=== PATIENT | male | born 1965 | race African-American/Black ===

== ENCOUNTER 2017-06-07 09:04 | Inpatient (IN) ==
[2017-06-07] MEDS ORDERED: CATAPRES ONE (09:27)
[2017-06-07] MEDS ORDERED: CATAPRES PO ONE (09:36)
[2017-06-07 09:48] LABS: UR AMPHETAMINES QUAL NONE DETECTED (NONE DETECT); UR BARBITUATES QUAL NONE DETECTED (NONE DETECT); UR BENZODIAZEPIN QUAL NONE DETECTED (NONE DETECT); UR CANNABINOIDS QUAL NONE DETECTED (NONE DETECT); UR COCAINE QUAL PRESUMPTIVE POSITIVE (NONE DETECT); UR MDMA QUAL NONE DETECTED (NONE DETECT); UR METHADONE QUAL NONE DETECTED (NONE DETECT); UR METHAMPHETAMINE QUAL NONE DETECTED (NONE DETECT); UR OPIATES QUAL NONE DETECTED (NONE DETECT); UR OXYCODONE QUAL NONE DETECTED (NONE DETECT); UR PCP QUAL NONE DETECTED (NONE DETECT); UR TCA QUAL NONE DETECTED (NONE DETECT)
[2017-06-07 09:56] LABS: BILIRUBIN URINE NEGATIVE (NEGATIVE); BLOOD URINE NEGATIVE (NEGATIVE); CLARITY SL. CLOUDY (CLEAR); COLOR YELLOW; GLUCOSE URINE NEGATIVE (NEGATIVE); LEUKOCYTES URINE 2+ (NEGATIVE); NITRITE URINE NEGATIVE (NEGATIVE); PROTEIN URINE 2+(100 mg/dL) mg/dL (NEGATIVE); UROBILINOGEN URINE NORMAL
[2017-06-07 10:02] LABS: BASO% 0.9 % (0.0-0.8); EOS% 1.9 % (0.0-10.0); HEMATOCRIT 30.7 % (42.0-52.0); HEMOGLOBIN 8.8 g/dL (14.0-18.0); IMM GRAN# 0.01 X1000 (0.0-0.04); IMM GRAN% 0.2 % (0.0-0.5); LYMPH# 1.33 X1000 (1.2-3.4); LYMPH% 24.9 % (20.5-51.1); MANUAL DIFF NEEDED? NO; MCH 19.6 PG (27-31); MCHC 28.7 g/dL (33-37); MCV 68.4 FL (81-99); MONO# 0.73 X1000 (0.11-0.59); MONO% 13.6 % (1.7-9.3); NEUT% 58.5 % (42.2-75.2); PLT 374 X1000 (130-400); RBC 4.49 XMIL (4.7-6.1)
[2017-06-07 10:05] LABS: URINE SOURCE CLEAN CATCH; URINE WBC 20-40 /HPF (<10)
[2017-06-07 10:06] LABS: URINE CULTURE PL NEEDED? YES; URINE EPITHELIAL CELLS <10 /HPF (<10)
[2017-06-07 10:23] LABS: AMYLASE 92 U/L (20-200); LIPASE 82 U/L (13-60)
[2017-06-07 10:24] LABS: ALBUMIN 3.9 g/dL (3.5-5.0); CALCIUM 8.7 mg/dL (8.8-10.2); MAGNESIUM 2.4 mg/dL (1.5-2.7); POTASSIUM 3.4 mmol/L (3.5-5.1); TOTAL BILIRUBIN 0.4 mg/dL (0.20-1.00); TOTAL PROTEIN 7.3 g/dL (6.3-8.3)
[2017-06-07] MEDS ORDERED: LASIX IV ONE (10:51)
[2017-06-07] MEDS ORDERED: NS 1,000 ML IV ONE (10:52)
[2017-06-07] MEDS ORDERED: SALINE LOCK IV FLUID XX ONE (12:09)
[2017-06-07] MEDS ORDERED: APRESOLINE IV PRN (12:09)
[2017-06-07] MEDS: PRINIVIL PO SCH (13:39)
[2017-06-07] MEDS: MIRALAX PO SCH (13:40)
[2017-06-08] MEDS: NORCO-7.5 PO PRN ×2 (00:58→07:19)
[2017-06-08 06:35] LABS: BASO% 0.3 % (0.0-0.8); EOS# 0.04 X1000 (0.0-0.7); EOS% 0.6 % (0.0-10.0); HEMATOCRIT 30.6 % (42.0-52.0); IMM GRAN# 0.02 X1000 (0.0-0.04); IMM GRAN% 0.3 % (0.0-0.5); LYMPH# 0.86 X1000 (1.2-3.4); LYMPH% 13.9 % (20.5-51.1); MANUAL DIFF NEEDED? YES; MCH 19.7 PG (27-31); MCHC 29.4 g/dL (33-37); MONO% 16.2 % (1.7-9.3); MPV 10.7 FL (7.4-10.4); NEUT% 68.7 % (42.2-75.2); PLT 386 X1000 (130-400); RBC 4.57 XMIL (4.7-6.1)
[2017-06-08 07:14] LABS: CALCIUM 8.8 mg/dL (8.8-10.2); POTASSIUM 3.4 mmol/L (3.5-5.1)
[2017-06-08 07:31] LABS: IRON SATURATION 4 %; TIBC 426 ug/dL; TOTAL IRON 19 ug/dL (53-167); UNBOUND IRON 407 ug/dL (112-346)
[2017-06-08 07:32] LABS: LYMPHS 16 % (21-51); MONO 12 % (1-9)
[2017-06-08 07:33] LABS: HYPOCHROM 2+
[2017-06-08 07:35] LABS: TARGET CELLS OCCASIONAL
[2017-06-08] MEDS ORDERED: BENTYL PO PRN (07:49)
[2017-06-08] MEDS ORDERED: LASIX IV SCH (09:00)
[2017-06-08] MEDS ORDERED: KLOR-CON PO SCH (09:00)
[2017-06-08] MEDS: PRINIVIL PO SCH (12:00)
[2017-06-08] MEDS: MIRALAX PO SCH (12:00)
[2017-06-08] MEDS ORDERED: APRESOLINE PO SCH (16:00)
[2017-06-08 16:12] VITALS: BP 185/95
[2017-06-08] MEDS ORDERED: FERROUS SULFATE PO SCH (21:00)
[2017-06-08] MEDS ORDERED: COLACE PO SCH (21:00)
[2017-06-08] MEDS ORDERED: COREG PO SCH (21:00)
[2017-06-09] MEDS ORDERED: NORVASC PO SCH (09:00)
[2017-06-09] MEDS ORDERED: HYGROTON PO SCH (09:00)
== END 2017-06-08 18:26 | disposition home or self-care (01) ==
LOC: P.ED 09:04 → P.MEDSURG 11:45
PROVIDERS: ATTEND Internal Medicine

== ENCOUNTER 2019-03-16 10:12 | Inpatient (IN) ==
[2019-03-16] MEDS: APRESOLINE IV ONE (10:55)
[2019-03-16] MEDS ORDERED: ASPIRIN PO ONE (11:02)
[2019-03-16 11:27] LABS: BASO# 0.02 X1000 (0.0-0.2); BASO% 0.5 % (0.0-0.8); EOS# 0.17 X1000 (0.0-0.7); EOS% 4.4 % (0.0-10.0); HEMATOCRIT 39.1 % (42.0-52.0); HEMOGLOBIN 13.1 g/dL (14.0-18.0); LYMPH# 0.74 X1000 (1.2-3.4); LYMPH% 19.3 % (20.5-51.1); MCH 28.1 PG (27-31); MCHC 33.5 g/dL (33-37); MCV 83.9 FL (81-99); MONO# 0.69 X1000 (0.11-0.59); MPV 11.9 FL (7.4-10.4); NEUT# 2.21 X1000 (1.4-6.5); NEUT% 57.8 % (42.2-75.2); PLT 164 X1000 (130-400); RBC 4.66 XMIL (4.7-6.1); RDW 16.1 % (11.5-14.5); WBC 3.83 X1000 (4.8-10.8)
[2019-03-16 11:38] LABS: INR 0.86; PROTIME 12.4 Seconds (11.0-16.0)
[2019-03-16 11:44] LABS: PTT HEPARIN PROTOCOL 27.9 Seconds
--- NOTE | 2019-03-16 11:46 | EKG Report ---
Test Performed on : 03/16/2019 10:20:21 AM Test Reason : htn Blood Pressure : / mmHG Vent. Rate : 071 BPM Atrial Rate : 071 BPM P-R Int : 128 ms QRS Dur : 108 ms QT Int : 446 ms P-R-T Axes : 049 -42 154 degrees QTc Int : 484 ms Normal sinus rhythm. Possible Left atrial enlargement Left axis deviation Left ventricular hypertrophy with repolarization abnormality Prolonged QT Abnormal ECG When compared with ECG of 06-JAN-2019 08:13, aberrant conduction. is no longer present Unconfirmed Result
[2019-03-16 11:51] LABS: ALB/GLOB RATIO 1.4; ALBUMIN 4.1 g/dL (3.5-5.0); CALCIUM 8.8 mg/dL (8.8-10.2); CREATININE 5.4 mg/dL (0.7-1.2); POTASSIUM 3.9 mmol/L (3.5-5.1); TOTAL BILIRUBIN 0.47 mg/dL (0.20-1.00)
[2019-03-16] MEDS ORDERED: LASIX IV ONE (12:14)
--- NOTE | 2019-03-16 12:40 | PROVIDER DOCUMENTATION ---
This chart was entered by Ani Bloom Scribe, acting as scribe for Alcon Marrero MD. HPI-Chest Pain - General Chief Complaint: B/P Problems Stated Complaint: BP HIGH Time Seen by Provider: 03/16/19 10:53 Source: patient Allergies/Adverse Reactions: Patient Allergies Allergy/AdvReac Type Severity Reaction Status Date / Time No Known Allergies Allergy Verified 03/16/19 11:58 Home Medications: Home Medication List Medication Instructions Recorded Confirmed Last Taken Type Docusate Sodium [Colace] 100 mg PO BID #60 capsule 06/08/17 03/16/19 03/22/18 08:00 Rx Ferrous Sulfate 325 mg PO BID #120 tablet 06/08/17 03/16/19 03/22/18 08:00 Rx Hydralazine [Apresoline] 50 mg PO Q8HR #120 tablet 06/08/17 03/16/19 03/22/18 08:00 Rx Amlodipine [Norvasc] 10 mg PO QAM 03/22/18 03/16/19 03/22/18 08:00 History Aspirin 81 mg PO QAM 03/22/18 03/16/19 03/22/18 08:00 History Chlorthalidone [Hygroton] 12.5 mg PO QAM 03/22/18 03/16/19 03/22/18 08:00 History Clindamycin [Cleocin] 300 mg PO Q6HR #40 capsule 03/22/18 03/16/19 Unknown Rx Tramadol HCl [Ultram] 50 mg PO Q6-8H PRN PRN #15 tablet 03/22/18 03/16/19 Unknown Rx Acetaminophen [Tylenol] 650 mg PO Q6H PRN 03/16/19 03/16/19 Unknown History - History of Present Illness-CP Nature of Presenting Problem: Patient is a 53 year old male who presents with chest pain, shortness of breath, headache and weakness that has been present intermittently for 3 days. Reports having elevated blood pressure this morning of 217/138. States taking all his HTN medication this morning. Location: reports: central Chest Pain Radiation: reports: no radiation Quality of Pain: reports: aching Severity in ED: mild Onset/Duration: 3 days ago Timing: still present, intermittent Context/Activities at Onset: reports: light activity Associated Symptoms: reports: headache, shortness of breath, weakness Similar Symptoms Previously?: Yes Recently Seen Here or By Another Healthcare Provider: No Review of Systems - Adult - REVIEW OF SYSTEMS - ADULT Constitutional: reports: no symptoms reported. denies: chills, fever, fatique Eyes: reports: no symptoms reported Ears, Nose, Mouth & Throat: reports: no symptoms reported Cardiovascular: reports: see HPI, chest pain. denies: heart murmur, orthopnea Respiratory: reports: see HPI, shortness of breath. denies: cough, wheezing Gastrointestinal: reports: no symptoms reported Genitourinary: reports: no symptoms reported Musculoskeletal: reports: see HPI, muscle weakness. denies: back pain, neck pain Integumentary: reports: no symptoms reported Neurological: reports: see HPI, headache/migraines (KAUR). denies: dizziness/vertigo, numbness, seizure, syncope Psychiatric: reports: no symptoms reported Endocrine: reports: no symptoms reported Hematologic/Lymphatic: reports: no symptoms reported Allergic/Immunologic: reports: no symptoms reported All Other Systems: Reviewed and Negative Past History - Adult - PAST MEDICAL HISTORY-ADULT Review of Records: reports: Old Records Reviewed, Nursing Assessment Review, Medications Reviewed, Social history reviewed & non-contributory. Major Childhood Illnesses: reports: denies history Cardiovascular: reports: HTN, [place] Respiratory: reports: denies history Gastrointestinal: reports: other (ETOH occ) Obstetrical/Gynecological: reports: denies history Genitourinary: reports: kidney disease Musculoskeletal: reports: denies history Neurological: reports: denies history Endocrine/Immune: reports: denies history Other Conditions: reports: denies history - PRIOR SURGERIES/PROCEDURES Surgical/Procedure History: reports: cardiac stent, other (eye) - IMMUNIZATION STATUS Childhood Immunizations: See Nurse Assessment Flu Vaccine: See Nurse Assessment - FAMILY HISTORY Family History: diabetes - SOCIAL HISTORY Smoking: cigarettes (former) Substance Use: denies Physical Exam-General - PHYSICAL EXAM-ADULT Initial Vital Signs Reviewed: Yes - CONSTITUTIONAL General Appearance: alert, no apparent distress. negative: lethargic, slow to respond - HEAD, EARS, NOSE, MOUTH & THROAT HENMT: normocephalic/atraumatic, moist mucous membranes. negative: angioedema, hearing deficit - RESPIRATORY Respiratory: chest non-tender, lungs clear, normal breath sounds. negative: crackles, stridor - CARDIOVASCULAR Cardiovascular: normal peripheral pulses, regular rate, rhythm. negative: tachycardia, systolic murmur - GASTROINTESTINAL (ABDOMEN) Abdominal Exam: normal bowel sounds, non tender, soft. negative: guarding, rebound - MUSCULOSKELETAL Extremity: non-tender, normal inspection. negative: deformity, erythema - SKIN Integumentary: normal color, normal turgor, warm/dry. negative: cyanosis, ecchymosis, erythema, rash - NEUROLOGIC Neurologic: grossly normal. negative: aphasia, facial droop - PSYCHIATRIC Psych/Mental Status: normal mood/affect, oriented x 3. negative: anxious Progress - PLAN OF CARE/RESULTS Progress/Plan/Lab Results: Vital Signs - 8 hr 03/16/19 10:17 03/16/19 10:40 03/16/19 10:50 Temperature 98.6 F Pulse Rate 78 Respiratory Rate 17 Blood Pressure 209/138 O2 Sat by Pulse Oximetry 98 97 98 03/16/19 11:00 03/16/19 11:10 03/16/19 11:20 Temperature Pulse Rate Respiratory Rate Blood Pressure O2 Sat by Pulse Oximetry 99 98 98 03/16/19 11:30 03/16/19 11:40 03/16/19 11:50 Temperature Pulse Rate Respiratory Rate Blood Pressure O2 Sat by Pulse Oximetry 99 99 99 03/16/19 12:00 03/16/19 12:10 03/16/19 12:17 Temperature Pulse Rate Respiratory Rate Blood Pressure 196/132 O2 Sat by Pulse Oximetry 99 98 100 03/16/19 12:20 03/16/19 12:30 03/16/19 12:32 Temperature Pulse Rate Respiratory Rate Blood Pressure 202/123 O2 Sat by Pulse Oximetry 99 99 100 03/16/19 12:38 Temperature Pulse Rate 76 Respiratory Rate 18 Blood Pressure O2 Sat by Pulse Oximetry Laboratory Results - last 24 hr 03/16/19 03/16/19 03/16/19 11:04 11:04 11:04 WBC 3.83 L RBC 4.66 L Hgb 13.1 L Hct 39.1 L MCV 83.9 MCH 28.1 MCHC 33.5 RDW Std Deviation 16.1 H Plt Count 164 MPV 11.9 H Immature Gran % (Auto) 0.0 Neut % (Auto) 57.8 Lymph % (Auto) 19.3 L Randolph % (Auto) 18.0 H Eos % (Auto) 4.4 Baso % (Auto) 0.5 Immature Gran # (Auto) 0.00 Neut # (Auto) 2.21 Lymph # (Auto) 0.74 L Randolph # (Auto) 0.69 H Eos # (Auto) 0.17 Baso # (Auto) 0.02 PT INR PTT (Heparin Protocol) Sodium 135 L Potassium 3.9 Chloride 99 Carbon Dioxide 20 L Anion Gap 16 BUN 63 H Creatinine 5.4 H Estimated GFR/1.73 m2 14 BUN/Creatinine Ratio 12 Glucose 90 Calculated Osmolality 288 Calcium 8.8 Total Bilirubin 0.47 AST 22 ALT 27 Alkaline Phosphatase 52 Troponin T Waz-C-Uxetuaquduh Pept > 97562 H Total Protein 7.0 Albumin 4.1 Globulin 2.9 Albumin/Globulin Ratio 1.4 03/16/19 03/16/19 11:04 11:04 WBC RBC Hgb Hct MCV MCH MCHC RDW Std Deviation Plt Count MPV Immature Gran % (Auto) Neut % (Auto) Lymph % (Auto) Randolph % (Auto) Eos % (Auto) Baso % (Auto) Immature Gran # (Auto) Neut # (Auto) Lymph # (Auto) Randolph # (Auto) Eos # (Auto) Baso # (Auto) PT 12.4 INR 0.86 PTT (Heparin Protocol) 27.9 Sodium Potassium Chloride Carbon Dioxide Anion Gap BUN Creatinine Estimated GFR/1.73 m2 BUN/Creatinine Ratio Glucose Calculated Osmolality Calcium Total Bilirubin AST ALT Alkaline Phosphatase Troponin T 0.046 Jwi-N-Nuqkwsqwbsx Pept Total Protein Albumin Globulin Albumin/Globulin Ratio Orders Category Date Time Status cxr [CHEST-1 VIEW] [RAD] Stat Exams 03/16/19 10:54 Completed CBC WITH ELECTRONIC DIFF [HEME] Stat Lab 03/16/19 11:04 Completed COMPREHENSIVE METABOLIC PANEL [CHEM] Stat Lab 03/16/19 11:04 Completed PRO B-NATRIURETIC PEPTIDE Stat Lab 03/16/19 11:04 Completed PROTIME WITH INR [COAG] Stat Lab 03/16/19 11:04 Completed PTT HEPARIN PROTOCOL [COAG] Stat Lab 03/16/19 11:04 Completed TROPONIN T Stat Lab 03/16/19 11:04 Completed URINE DRUG SCREEN Stat Lab 03/16/19 12:34 Uncollected Aspirin Med 03/16/19 11:02 Discontinued 325 mg PO NOW ONE Furosemide [Lasix] Med 03/16/19 12:14 Discontinued 40 mg IV NOW ONE Hydralazine [Apresoline] Med 03/16/19 10:55 Discontinued 20 mg IV NOW ONE Nitroglycerin Sl [Nitroglycerin] Med 03/16/19 11:02 Active 0.4 mg SL Q5M PRN PRN EKG [EKG] Stat Ther 03/16/19 10:54 Draft Result Diagrams: 03/16/19 11:04 03/16/19 11:04 - EKG 1 Time of EKG reading by physician:: 10:20 EKG Read and Signed by:: Alcon Marrero EKG Interpretation (*Must complete 3 of following elements*): Abnormal Rate: 71 Rhythm: normal sinus rhythm Laura: left QRS: LVH (with repolarization abnormality.) RI Interval: normal Comments: prolonged QT; possible left atrial enlargement - XRAY 1 XRAY Study: Chest Impression: See EMR Report (EXAM: CHEST-1 VIEW 03/16/2019 HISTORY: htn TECHNIQUE: AP portable at 1110 COMMENT: There is cardiomegaly and increased pulmonary vascularity. This has not changed appreciably since 06/07/2017. There are old rib fractures on the right. IMPRESSION: Cardiomegaly. Electronically signed by Dharmesh Gallardo 03/16/2019 12:57 PM 03/16/19 1257 Interpreting P hysician: Dharmesh Gallardo MD Dictated Date/Time: 03/16/19 1257 cc: Alcon Marrero MD; None,PCP) - CONSULTS/PCP/HOSPITALIST Notification #1 *Consult/PCP/Hospitalist*: Cat for Hospitalist Time Discussed: 12:39 Consult Disposition: Will see in ED, Admit Departure - Departure Date of Disposition Decision: 03/16/19 Time of Disposition Decision: 12:39 DIAGNOSIS: CHF exacerbation, Uncontrolled hypertension, Chest pain Disposition: ADMITTED INPATIENT 09 Certified Medical Emergency: Emergent Condition: Fair Referrals and Follow-Ups: None,PCP [Primary Care Provider] - - Critical Care Note This patient required my direct & personal management of CC.: No Attestation - Physician/ JAMES Attestation Patient care was provided by Advanced Practice Provider:: No The physician spent face to face time with patient:: Yes Advanced Practice Provider documentation review:: Supervising physician onsite and consulted in the evaluation and care of this patient. The physician did have a face to face encounter with the patient. This chart was documented by the indicated scribe, (Ani Bloom, Amanda) and accurately reflects the services I performed and decisions made by eRy schultz Donald C., MD, as attested by the provider's signature.
--- NOTE | 2019-03-16 13:00 | Diag Imaging Result Doc PS360 ---
EXAM: CHEST-1 VIEW 03/16/2019 HISTORY: htn TECHNIQUE: AP portable at 1110 COMMENT: There is cardiomegaly and increased pulmonary vascularity. This has not changed appreciably since 06/07/2017. There are old rib fractures on the right. IMPRESSION: Cardiomegaly. Electronically signed by Dharmesh Gallardo 03/16/2019 12:57 PM
[2019-03-16] MEDS ORDERED: APRESOLINE IV ONE (13:14)
[2019-03-16 14:20] LABS: UR AMPHETAMINES QUAL NONE DETECTED (NONE DETECT); UR BARBITUATES QUAL NONE DETECTED (NONE DETECT); UR BENZODIAZEPIN QUAL NONE DETECTED (NONE DETECT); UR CANNABINOIDS QUAL NONE DETECTED (NONE DETECT); UR COCAINE QUAL NONE DETECTED (NONE DETECT); UR METHADONE QUAL NONE DETECTED (NONE DETECT); UR OPIATES QUAL NONE DETECTED (NONE DETECT); UR OXYCODONE QUAL NONE DETECTED (NONE DETECT); UR PCP QUAL NONE DETECTED (NONE DETECT)
[2019-03-16] MEDS ORDERED: TYLENOL PO PRN (16:22)
[2019-03-16] MEDS ORDERED: APRESOLINE IV PRN (16:22)
--- NOTE | 2019-03-16 16:22 | HISTORY AND PHYSICAL ---
PRIMARY CARE PROVIDER: None. BAKE ROOM WORKER: Dr. Duckworth in [place]. CHIEF COMPLAINT: Chest pain, high blood pressure. HPI: Mr. Cruz is a 53-year-old male who carries a past medical history of CT 1 year ago status post stents, hypertension, questionable congestive heart failure, prior cocaine abuse presented to the ED with complaints of high blood pressure since Saturday and chest pain that started this a.m. that has now subsided. It was left-sided nonradiating. He was nauseated, dizziness and diaphoretic. No vomiting. No palpitations. Workup in the ED revealed a proBNP greater than 35,000, acute kidney injury on chronic kidney disease and a troponin of 0.046. His toxicology screen was negative. He is being admitted for chest pain rule out CHF exacerbation and acute kidney injury with a consult for Cardiology. REVIEW OF SYSTEMS: Twelve-point review of systems completely negative except for those mentioned in HPI. PAST MEDICAL HISTORY: 1. Hypertension. 2. Coronary artery disease status post CT. 3. Past medical history stent 1 year ago. 4. Sebaceous cyst removed from left forehead. FAMILY HISTORY: Noncontributory. SOCIAL HISTORY: Currently lives with family. Continues to smoke cigarettes, beer on occasion. Denies any illicit drug use. PHYSICAL EXAMINATION: VITAL SIGNS: Temperature is 98.6 degrees, heart rate 78, respiration 17, initial blood pressure was 209/138, repeat is 191/125, O2 is 99% on room air. GENERAL: Mr. Cruz is a pleasant 53-year-old -[place] male who is sitting up in the bed in no acute distress. HEENT: Atraumatic, normocephalic. PERRL. NECK: Supple. Trachea midline. CARDIOVASCULAR: S1, S2 appreciated. No murmurs, gallops, rubs noted. RESPIRATORY: Lung sounds bilateral crackles in the bases. No wheezes noted. GI: Soft, nontender, nondistended, positive bowel sounds 4 quads. EXTREMITIES: Lower extremity negative for edema. NEURO: No focal deficits noted. DIAGNOSTIC DATA: Chest x-ray cardiomegaly and increased pulmonary vasculature. EKG showed normal sinus rhythm, left axis deviation and LVH 71 beats per minute. LABORATORY DATA: White count 3, hemoglobin and hematocrit 13 and 39, platelet count 169,000. Sodium 135, potassium 3.9, BUN 63, creatinine 5.4, troponin 0.046, proBNP greater than 35,000. Tox screen was negative. ASSESSMENT AND PLAN: 1. Accelerated hypertension. Will continue with p.o. medications and IV p.r.n., patient could not recall medications he was on at home. He does not appear to be compliant. He states he has medications from Dr. Duckworth but he has not followed up with him. 2. Chest pain rule out. Will continue to trend his cardiac enzymes. He had a slightly mild elevation in his troponin however his chest pain has resolved since receiving medications in the emergency department. We will consult Cardiology, await further input. 3. Acute congestive heart failure exacerbation. Will continue with IV diuresis, check an echocardiogram, get Cardiology on board. His last echocardiogram was back in 2017 where he had left ventricular hypertrophy and ejection fraction of 55%. 4. SANDEE/CKD gently diuresis, check renal U/S and consult Gladish if kidney function worsens. 5. Coronary artery disease status post stenting. Patient states he only takes an aspirin when he has chest pain. 6. Hypertension aware see #1. 6. Probable medical noncompliance. Patient will need continued education. Contact social work job titles for medication assistance. 7. Further recommendation to follow physician evaluation, laboratory and diagnostic data. Dictated by CHARU Mills for Srikanth Shah MD Addendum: Patient seen and examined by myself. Agree with CHARU note. It reflects my assessment and plan. Patient is being admitted to hospital for chest pain most likely related to uncontrolled hypertension. Will trend cardiac enzymes, will optimize HTN control and consult Cardiology. Will monitor patient closely. cc: MD GOMEZ De La O
[2019-03-16] MEDS: APRESOLINE PO SCH (17:34)
[2019-03-16] MEDS: LASIX IV SCH (17:34)
[2019-03-16] MEDS: NORVASC PO SCH (17:34)
--- NOTE | 2019-03-16 17:51 | Diag Imaging Result Doc PS360 ---
EXAM: US RENAL 2 (RETROPER) COMPLETE 03/16/2019 HISTORY: SANDEE TECHNIQUE: Renal ultrasound COMMENT: The kidneys are hyperechoic. There is no evidence of hydronephrosis or mass. The urinary bladder is unremarkable. The prostate is not enlarged. The right kidney is 9.5 x 4.1 x 4.9 cm the left is 10.6 x 4.3 x 5.6 cm. IMPRESSION: Medical renal disease. Electronically signed by Dharmesh Gallardo 03/16/2019 5:49 PM
[2019-03-16] MEDS ORDERED: CATAPRES PO ONE (19:16)
[2019-03-16] MEDS: FERROUS SULFATE PO SCH (20:56)
[2019-03-16 21:02] LABS: T4 8.46 ug/dL (4.60-12.00)
[2019-03-17] MEDS: APRESOLINE PO SCH ×3 (01:09→21:12)
[2019-03-17 05:17] LABS: URINE SOURCE CLEAN CATCH
[2019-03-17 05:24] LABS: BILIRUBIN URINE NEGATIVE (NEGATIVE); BLOOD URINE NEGATIVE (NEGATIVE); COLOR STRAW; GLUCOSE URINE NEGATIVE (NEGATIVE); KETONE URINE NEGATIVE (NEGATIVE); LEUKOCYTES URINE NEGATIVE (NEGATIVE); NITRITE URINE NEGATIVE (NEGATIVE); PH URINE 6.5; PROTEIN URINE 200 mg/dL (NEGATIVE); SP GRAVITY URINE 1.009; TURBIDITY URINE CLEAR (CLEAR); UROBILINOGEN URINE NORMAL (NORMAL)
[2019-03-17 05:25] LABS: UR EPITHELIAL CELLS <10 /HPF (<10); URINE BACTERIA NEGATIVE /HPF; URINE RBC <10 /HPF (<10); URINE WBC <10 /HPF (<10)
[2019-03-17 05:39] LABS: UR CREAT RANDOM 63.2 mg/dL (14-26); UR PROT RANDOM 137.8 mg/dL
[2019-03-17] MEDS: LASIX IV SCH ×2 (05:52→17:19)
--- NOTE | 2019-03-17 07:35 | EKG Report ---
Test Performed on : 03/17/2019 07:05:48 AM Test Reason : Heart Failure Admission Blood Pressure : / mmHG Vent. Rate : 068 BPM Atrial Rate : 068 BPM P-R Int : 160 ms QRS Dur : 112 ms QT Int : 496 ms P-R-T Axes : 049 -35 160 degrees QTc Int : 527 ms Sinus rhythm. with premature atrial complexes. Possible Left atrial enlargement Left axis deviation Left ventricular hypertrophy with repolarization abnormality Cannot rule out Septal infarct , age undetermined Prolonged QT Abnormal ECG When compared with ECG of 16-MAR-2019 10:20, (Unconfirmed) premature atrial complexes. are now present Minimal criteria for Septal infarct are now present Confirmed by Jo-Ann JEWELL, Aubrey Mcclendon ([id number]) on 03/17/2019 5:31:06 PM
--- NOTE | 2019-03-17 08:04 | Diag Imaging Result Doc PS360 ---
CHEST-PORTABLE - 03/17/2019 INDICATION: CHF COMPARISON: 03/16/2019 FINDINGS: Stable mild cardiomegaly and pulmonary vascular congestion. No infiltrates or edema. No pneumothorax or pleural effusion. IMPRESSION: No change from prior. Electronically signed by Ivan Valdez 03/17/2019 8:01 AM
[2019-03-17] MEDS: NORVASC PO SCH (08:12)
[2019-03-17] MEDS: ASPIRIN PO SCH (08:12)
[2019-03-17] MEDS: FERROUS SULFATE PO SCH ×2 (08:13→21:11)
[2019-03-17] MEDS ORDERED: CATAPRES PO SCH (09:00)
[2019-03-17 11:23] LABS: HEMATOCRIT 40.3 % (42.0-52.0); HEMOGLOBIN 13.5 g/dL (14.0-18.0); MCH 28.5 PG (27-31); MCHC 33.5 g/dL (33-37); MCV 85.2 FL (81-99); MPV 11.1 FL (7.4-10.4); RBC 4.73 XMIL (4.7-6.1); WBC 2.72 X1000 (4.8-10.8)
[2019-03-17 11:57] LABS: CALCIUM 9.1 mg/dL (8.8-10.2); CREATININE 5.6 mg/dL (0.7-1.2); MAGNESIUM 2.4 mg/dL (1.5-2.7); PHOSPHORUS 6.1 mg/dL (2.7-4.5); POTASSIUM 3.7 mmol/L (3.5-5.1)
[2019-03-17 12:51] LABS: HEMOGLOBIN A1C 4.8 % (4.8-6.0)
[2019-03-17] MEDS: APRESOLINE IV ONE (13:15)
--- NOTE | 2019-03-17 14:13 | NEPHROLOGY CONSULTATION ---
DATE: 03/17/2019 REASON FOR ADMISSION: Chest pain with high blood pressure. REASON FOR CONSULTATION: Acute kidney injury on chronic kidney disease, stage unknown. CONSULTING PHYSICIAN: Dr. Salinas. HISTORY OF PRESENT ILLNESS: Mr. Cruz is a 53-year-old male, who has a past medical history of an [place] approximately 1 year ago, followed by Dr. Duckworth in [place]. The patient does have questionable history of congestive heart failure. He states that he had cocaine abuse in the past, presented yesterday evening with complaints of chest pain, left-sided, nonradiating pain, slight nausea, no emesis, no palpitations, no diaphoresis, no increased swelling or recent fall. He alsostates he's been told he had kidney disease. He is unaware of to what extent. In the emergency room, he had a proBNP greater than 35,000. His troponin was elevated at 0.46. He also had a BUN of 63 with a creatinine of 5.4. The patient subsequently was treated with medications. He has had cardiac enzymes drawn with slightly elevated troponin. Cardiology was consulted. He was given IV diuresis. Echocardiogram to be completed. Previous echocardiogram in 2017 showed an ejection fraction of 55% with a left ventricular hypertrophy. Blood pressure remains elevated. This continues to be monitored and medication prescribed per primary care. PAST MEDICAL HISTORY: Hypertension, coronary artery disease status post [place] in 2017. Past medical history of stent 1 year ago. Sebaceous cyst removed from left forehead. Chronic kidney disease. PREVIOUS SURGICAL HISTORY: Cardiac stent. SOCIAL HISTORY: He lives with his sister. He is currently from his for approximately 1 year. Continued to smoke cigarettes. Drinks beer, isolated every 2 to 3 days. Denies any illicit drug use. FAMILY HISTORY: Not contributory towards acute kidney injury or end-stage renal disease. ALLERGIES: Listed as no known drug allergies. HOME MEDICATIONS: Have been reviewed. These are listed as ferrous sulfate, Apresoline, aspirin, Ultram, Hygroton, Norvasc and Tylenol. REVIEW OF SYSTEMS: Times 10 with pertinent positives listed above in the HPI. PHYSICAL EXAMINATION: Vital Signs: The patient's most recent vital signs: Temperature 97.5 degrees, blood pressure 190/107 this a.m. currently down to 154/95 at the time of dictation. Heart rate of 75, respirations 14. He is on room air; last recorded saturation 100%. He has had 0 recorded in with 380 mL out. He has 200 mL sitting in his urinal. General: On physical examination, this is a 53-year-old male resting quietly in bed. He appears in no acute distress. Skin: Warm and dry. HEENT: Normocephalic, atraumatic. Conjunctiva is pale. He has EKTA. Mucous membranes are dry. Neck: Supple. Trachea midline. He has slight JVD in the upright position. Cardiovascular: He is regular rate and rhythm. No murmur or gallop appreciated. Lungs: Clear to auscultation anterior. Equal excursion on room air. Abdomen: Soft, nontender. Positive bowel sounds. Genitourinary: Not inspected. Patient is using urinal with adequate amount out, noted 200 mL in the urinal at the bedside. Extremities: Have no edema. No clubbing or cyanosis. Neurological: He is alert and oriented x3. Good historian. LABORATORY DATA: Sodium 131, potassium 3.7, chloride 93, CO2 22. BUN 67, creatinine 5.6, glucose 96. Anion gap is 16, calcium 9.1, phosphorus 6.1, albumin 4, with a magnesium of 2.4. White count 3.83, hemoglobin 13.5, hematocrit 40.3 with a platelet count of 182. The patient has a TSH of 2, T4 of 8.46. X-RAY DATA: Ultrasound of renal indicates right kidney measuring 9.5 with a left of 10.6. Chest x-ray shows stable chest with previous pulmonary vascular congestion noted. No infiltrates or edema. ASSESSMENT AND PLAN: 1. Acute kidney injury on questionable chronic kidney disease. The patient had a previous creatinine in 2017 of 2. This is questionable acute versus worsening of his chronic kidney disease. He does have a FENa score that has been completed indicated at 4.55%. Negative renal ultrasound. He is currently receiving Lasix 40 mg q. 12 hours. No intravenous fluids at this time. We will continue to monitor and follow. No indications for intervention at this time. 2. Electrolytes and acid-base balance. He has a low sodium of 131, potassium of 3.7, CO2 of 22, with a slight anion gap acidosis. We will continue to monitor. 3. Anemia. This is actually in target. 4. Hypertension. We have deferred to the primary care team. He has had carvedilol increased to 6.25 mg oral every 12 hours. He remains on Lasix 40 mg every 12 hours. Continues on amlodipine 10 mg, and has been started on hydralazine 50 mg oral every 8 this is followed by the primary care. We are awaiting Cardiology input. I would like to thank you for allowing us to follow with this patient. I expect that this is advanced stage IV CKD from hypertension. Given chronicity I do not think a biopsy would change his care. Complete initial data collection. We will follow him longitudinally. rg Dictated by CHARU Loya for Ryan Kauffman MD Face to face encounter, data reviewed, discussed with Mary Jimenez on 03/17/19. I agree with the above assessment and plan of care. rg cc: CHARU Loya MD [facility]
[2019-03-17] MEDS: APRESOLINE IV PRN ×2 (14:55→19:44)
--- NOTE | 2019-03-17 18:23 | PROGRESS NOTE ---
DATE: 03/17/2019 SUBJECTIVE: The patient is sitting up in bed eating lunch. He states that he is no longer having any chest pain. He also denies having any shortness of breath. His headache is better. OBJECTIVE: Vital Signs: Temperature 97.5 degrees, blood pressure 172/119, heart rate 73, respirations 20, O2 saturations 100% on room air. Intake 480, output 550. General: This is a chronically ill-appearing elderly male sitting up in bed in no acute distress. Heart: S1, S2, normal. Lungs: Equal air entry bilaterally. No wheezing. No rales. No rhonchi. Abdomen: Positive bowel sounds. Soft, nontender, nondistended. Extremities: No edema, no cyanosis. Neurologic: The patient is alert and oriented x4. LABORATORY DATA: White blood cell count 2.7, hemoglobin 13, hematocrit 40, platelets 182,000. Sodium 131, potassium 3.7, chloride 93, CO2 is 22, BUN 67, creatinine 5.6, glucose 96. CK 80. Albumin 4. ASSESSMENT AND PLAN: 1. Chest pain. The patient is scheduled to undergo a stress test. Further recommendations to follow from the traveler changer. 2. Malignant hypertension. The patient's blood pressure is poorly controlled at this time. We will await further adjustments from the traveler changer. 3. Acute kidney injury on chronic kidney disease. The patient's renal function has worsened significantly. We will await recommendations from the cardiac exercise physiologist. 4. Acute congestive heart failure exacerbation. The patient is currently on diuretic therapy. Further recommendations to follow from the traveler changer. 5. Tobacco dependence. The patient has been counseled about smoking cessation. 6. Deep vein thrombosis prophylaxis. We will start the patient on heparin. cc: MD GOMEZ Fried
--- NOTE | 2019-03-17 19:39 | CONSULTATION ---
DATE OF CONSULTATION: 03/17/2019 IMPRESSION: 1. Episodic chest discomfort with features predominantly atypical for myocardial ischemia. 2. Acute on chronic renal failure. 3. Severe hypertension, poorly controlled. 4. Atherosclerotic coronary disease, status post acute inferior myocardial infarction January 2018. Coronary angiography in [facility] demonstrated occluded mid right coronary artery and 70% to 75% obtuse marginal stenosis. The patient underwent angioplasty/stenting of the right coronary with a drug-eluting stent at that time. Left ventricular ejection fraction normal. 5. Chronic cigarette use. Patient previously quit smoking but has gone back to smoking a few cigarettes a day. RECOMMENDATIONS: 1. Echocardiography. 2. Arrange Lexiscan sestamibi study; however, given his acute on chronic renal failure, will gravitate toward medical management of the patient's coronary atherosclerosis at this time unless he has clear-cut unstable coronary symptoms. 3. Continue current antihypertensive regimen with carvedilol, hydralazine and amlodipine. Will increase dose of carvedilol and may consider switching to labetalol, depending on his response. HISTORY OF PRESENT ILLNESS: This is a 53-year-old male with a past history of severe hypertension and atherosclerotic coronary disease who was admitted to the emergency room with atypical chest pain and severe hypertension He suffered an acute inferior myocardial infarction in January 2018. He was transported emergently to [facility], where coronary angiography demonstrated an occluded right coronary and 70% to 75% obtuse marginal stenosis. He underwent emergent angioplasty/stenting of the right coronary artery with placement of drug- eluting stent. He has continued without chest discomfort like that since then. He has not had regular medical followup for financial reasons; however, he relates he has been taking his medicines with the exception of just a few days. He relates that about a week or so ago he started having problems with exertional shortness of breath. There was no orthopnea. Prior to admission he started having some left-sided sharp intermittent chest discomfort. The chest discomfort seemed to be somewhat pleuritic in nature. The chest discomfort is not like what he has experienced with his coronary disease last year. He was found to have severely elevated blood pressure as well as acute renal failure. PAST MEDICAL HISTORY: 1. Severe hypertension. 2. Atherosclerotic coronary disease as outlined above. PAST SURGICAL HISTORY: Limited and consists of removal of a cyst from his left forehead. ALLERGIES: He has no known drug allergies. MEDICATIONS PRIOR TO ADMISSION: As listed. SOCIAL HISTORY: He currently lives with family. He continues to smoke 4-5 cigarettes daily and previously smoked more in the past. Drinks an occasional beer. FAMILY HISTORY: Positive for coronary disease and hypertension. REVIEW OF SYSTEMS: Pulmonary: Noteworthy for exertional dyspnea. He has very little cough. Gastrointestinal: Negative. Constitutional: Negative/noncontributory. Remainder of review of systems negative/noncontributory with 14 total systems reviewed. PHYSICAL EXAMINATION: General: This is a pleasant adult -[place] male in no distress. Vital signs: Blood pressure 172/119. On most recent check just before that 152/103. Heart rate 73 and regular. Oxygen saturation 100% on room air. HEENT: Extraocular movements appear intact. Mucous membranes are moist. Neck: Supple without jugular venous distention. There are no carotid bruits. Chest: Clear to auscultation. Cardiac Exam: Reveals a regular rate and rhythm with normal 1st and 2nd heart sounds. An S4 gallop is present. No murmur could be appreciated. Abdomen: Soft, nontender. Bowel sounds are normal. Extremities: Without edema. Neurologic: Reveals him to be alert and fully oriented. Speech is fluent. Moves all 4 extremities equally well. Skin: Warm and dry. Psychiatric: Reveals mood to be appropriate. PERTINENT DATA: A 12-lead electrocardiogram demonstrates sinus rhythm with occasional premature atrial complex, left axis deviation, left atrial enlargement and left ventricular hypertrophy with repolarization abnormality. Q-T interval is prolonged. LABORATORY DATA: Includes a white blood cell count of 2.72, hematocrit 40.3, hemoglobin 13.5, platelet count 182. Sodium 131, potassium 3.7, chloride 93. Carbon dioxide 22, BUN 67, creatinine 5.6, glucose 96 magnesium 2.4. Initial troponin 0.048, followup troponin 0 0.042. Albumin 4.0. cc: Sandeep Marvin MD
[2019-03-17] MEDS ORDERED: COREG PO SCH (21:00)
[2019-03-17] MEDS: HEPARIN SUBQ SCH (21:11)
--- NOTE | 2019-03-17 23:48 | ECHO REPORT ---
ORDER DATE: 03/16/2019 MEASUREMENTS: Septal thickness 2.5, left ventricular internal diameter diastole 3.7, posterior wall thickness 2.5, left ventricular internal diameter in systole 2.6, aortic root 4.2, left atrium 4.0. SUMMARY: 1. Adequate quality study. 2. Aortic valve is trileaflet and opens normally on 2-dimensional images. Peak gradient across the aortic valve is 12 mmHg. There is mild aortic regurgitation. Mitral, tricuspid, and pulmonic valves are without evidence of structural abnormality with mild to moderate mitral regurgitation. Aortic root is mildly enlarged. 3. Normal left ventricular chamber size with severe concentric left ventricular hypertrophy demonstrated. Estimated left ejection fraction is approximately 55%. No regional wall motion abnormalities evident. Doppler suggests grade 1 left ventricular diastolic dysfunction. Left atrium is borderline enlarged. Right atrium and right ventricle are normal in size with normal right ventricular systolic function. 4. No pericardial effusion. 5. Appearance of inferior vena cava suggests normal central venous pressure. CONCLUSIONS: 1. Mild aortic regurgitation. 2. Mild aortic root enlargement. 3. Mild to moderate mitral regurgitation. 4. Severe concentric left hypertrophy with estimated left ejection fraction approximately 55%. 5. Grade 1 left ventricular diastolic dysfunction. 6. Borderline left atrial enlargement. cc: Sandeep Marvin MD
[2019-03-18] MEDS: APRESOLINE PO SCH ×3 (05:19→20:02)
[2019-03-18] MEDS: LASIX IV SCH (05:19)
--- NOTE | 2019-03-18 07:14 | EKG Report ---
Test Performed on : 03/18/2019 06:19:06 AM Test Reason : chest pain Blood Pressure : / mmHG Vent. Rate : 083 BPM Atrial Rate : 083 BPM P-R Int : 138 ms QRS Dur : 110 ms QT Int : 466 ms P-R-T Axes : 058 -22 138 degrees QTc Int : 547 ms Sinus rhythm. with premature atrial complexes. Possible Left atrial enlargement Left ventricular hypertrophy with repolarization abnormality Prolonged QT Abnormal ECG When compared with ECG of 17-MAR-2019 07:05, Nonspecific T wave abnormality no longer evident in Anterior leads Confirmed by Jo-Ann JEWELL, Aubrey Mcclendon ([id number]) on 03/18/2019 3:52:49 PM
[2019-03-18] MEDS ORDERED: LEXISCAN ONE (08:10)
[2019-03-18] MEDS: FERROUS SULFATE PO SCH ×2 (08:58→20:02)
[2019-03-18] MEDS: APRESOLINE IV PRN (08:59)
[2019-03-18] MEDS ORDERED: COREG PO SCH (09:00)
[2019-03-18] MEDS: ASPIRIN PO SCH (09:01)
[2019-03-18] MEDS: HEPARIN SUBQ SCH ×2 (09:01→20:01)
[2019-03-18] MEDS: NORVASC PO SCH (09:01)
[2019-03-18] MEDS: IMDUR PO SCH (09:01)
[2019-03-18] MEDS ORDERED: CARDENE 20 MG/NS 20 MG/200 ML PIGGYBACK IV SCH (10:00)
[2019-03-18 10:14] LABS: HEMATOCRIT 41.6 % (42.0-52.0); MCH 28.1 PG (27-31); MCHC 33.7 g/dL (33-37); MCV 83.4 FL (81-99); MPV 11.1 FL (7.4-10.4); RBC 4.99 XMIL (4.7-6.1); RDW 15.8 % (11.5-14.5); WBC 3.15 X1000 (4.8-10.8)
--- NOTE | 2019-03-18 10:16 | Diag Imaging Result Doc PS360 ---
CHEST-PORTABLE - 03/18/2019 INDICATION: dyspnea COMPARISON: 03/17/2019 FINDINGS: Heart size is borderline. No infiltrates or edema. No pneumothorax or pleural effusion. IMPRESSION: Borderline cardiomegaly but no acute disease. Electronically signed by Ivan Valdez 03/18/2019 10:13 AM
--- NOTE | 2019-03-18 10:20 | NEPHROLOGY PROGRESS NOTE ---
DATE: 03/18/2019 Date Seen: 03/18/2019 Time Seen: 0640. SUBJECTIVE: Mr. Cruz is resting quietly in bed. States that he is feeling well. Hopes to go home today. OBJECTIVE: Vital Signs: Temperature 98.2 degrees, blood pressure 155/100, heart rate 82, respirations 14. He is on room air. Last recorded saturation 100%. He has had 480 in, 750 out to void. LAB: These are currently pending this a.m. Previous potassium 3.7 with a BUN of 67 and creatinine of 5.6. Previous hemoglobin 13.5 on the . PHYSICAL EXAMINATION: This is a 53-year-old male. He is currently resting quietly in bed. He appears chronically ill though no acute distress.Skin: Warm and dry. HEENT: Normocephalic, atraumatic. Conjunctiva is pale pink. He has EKTA. Mucous membranes are dry. Neck: Supple. Trachea midline. He does have slight JVD in the upright position. Cardiovascular: He is regular rate and rhythm. No murmur or gallop appreciated. Lungs: Clear to auscultation bilaterally. Equal excursion on room air. Abdomen: Soft, round, nontender. Positive bowel sounds. Genitourinary: Not inspected. Patient has been voiding adequate amount that has been documented. Extremities: Have no edema, no clubbing or cyanosis. Neurological: He is alert and oriented x3. ASSESSMENT AND PLAN: 1. Presumed CKD with progression secondary to HTN. This is questionable chronic kidney disease stage 5 with worsening of his renal status. The patient had a negative ultrasound. He continued to receive Lasix 40 mg q.12 hours. He has no IV fluids in place with adequate urine out. We have spoken to the patient of possible progression of his renal disease and would need to be followed closely in our office upon discharge. The patient states understanding. 2. Electrolytes, acid-base balance and anemia. These have all been fairly stable with labs currently pending during his hospital stay. 3. Hypertension. The patient has had Coreg increased to 12.5 mg b.i.d. We will continue to monitor and follow. DISPOSITION: The patient states he has no health insurance, is concerned about discharge. We will ask social media job titles to assist the patient in any way that they can, also in regards with possible lab draws through the hospital system on an outpatient basis. I would like to thank you for allowing us to follow with this patient. Dictated by CHARU Loya for Ryan Kauffman MD Face to face encounter, data reviewed, discussed with Mary Jimenez on 03/18/19. I agree with the above assessment and plan of care. cc: CHARU Loya MD [facility]
[2019-03-18 10:46] LABS: ALBUMIN 4.3 g/dL (3.5-5.0); CALCIUM 9.2 mg/dL (8.8-10.2); CREATININE 5.9 mg/dL (0.7-1.2); PHOSPHORUS 5.2 mg/dL (2.7-4.5); POTASSIUM 3.7 mmol/L (3.5-5.1)
[2019-03-18] MEDS ORDERED: LABETALOL IV ONE (15:49)
[2019-03-18] MEDS ORDERED: ADALAT CC PO ONE (16:12)
[2019-03-18] MEDS ORDERED: LABETALOL IV PRN (16:16)
--- NOTE | 2019-03-18 17:15 | CARDIOLOGY PROGRESS NOTE ---
DATE: 03/18/2019 SUBJECTIVE: Patient's blood pressure became significantly elevated while in Nuclear Medicine and the 2nd half of Lexiscan sestamibi study was postponed. Patient was taken back to the floor and was given his morning antihypertensive medications as well as some additional intravenous hydralazine. Blood pressure remained elevated, and he was brought to the intensive care unit and started on intravenous Cardene drip. He has had some chest tightness this morning, which has now resolved. OBJECTIVE: Blood pressure 144/97 and after intravenous Cardene drip interrupted blood pressure significantly elevated, heart rate 87, oxygen saturation 99% on room air. There is no significant jugular venous distention. Chest is clear to auscultation. Cardiac exam reveals a regular rate and rhythm with normal 1st and 2nd heart sounds. S4 gallop present. There is no evidence of peripheral edema. DIAGNOSTIC STUDIES: Laboratory data includes a white blood cell count of 3.15, hematocrit 41.6, hemoglobin 14.0, platelet count 225,000. Sodium 134, potassium 3.7, chloride 93, carbon dioxide 22, BUN 69, creatinine 5.9, glucose 104. Troponin T less than 0.04. Albumin 4.3. Echocardiography demonstrates mild aortic regurgitation, aortic root enlargement to a mild degree, mild to moderate mitral regurgitation, and severe concentric left hypertrophy with estimated left ventricular ejection fraction approximately 55%. IMPRESSION: 1. Episodic chest discomfort with mixed features. No objective evidence of myocardial ischemia. 2. Renal failure. 3. Hypertensive cardiovascular disease with severe hypertension and severe concentric left ventricular hypertrophy. 4. Atherosclerotic coronary disease with previous inferior myocardial infarction, January 2018. Patient is status post angioplasty and stenting of occluded right coronary artery with drug- eluting stent at that time. 5. Chronic cigarette use. Patient previously had quit smoking but has gone back to smoke a few cigarettes a day. RECOMMENDATIONS: 1. Increase carvedilol further. 2. Switch from amlodipine to Procardia XL 90 mg p.o. daily. 3. If blood pressure remains elevated despite the changes, consider switching carvedilol to labetalol and pushing the dose. 4. Ultimately, complete Lexiscan myocardial perfusion study once blood pressure is sufficiently controlled. cc: Sandeep Marvin MD
--- NOTE | 2019-03-18 18:17 | PROGRESS NOTE ---
DATE: 03/18/2019 SUBJECTIVE: This morning the patient was noted to be complaining of some chest tightness and his blood pressure was noted to be markedly elevated at 198/122. Also, he was complaining of a nosebleed and a mild headache. In light of these findings, the patient was transferred to the ICU and started on a Cardene drip. OBJECTIVE: Vital Signs: Temperature 98.6 degrees, blood pressure 164/118, heart rate 78, respirations 23, O2 saturation 99% on room air. Urine output 750. General: This is a chronically ill-appearing elderly male lying in bed in no acute distress head normocephalic, atraumatic. Heart: S1, S2 normal. Regular rate and rhythm. Lungs: Clear to auscultation bilaterally. No wheezing. No rales. No rhonchi. Abdomen: Positive bowel sounds. Soft, nontender, nondistended. Extremities: No edema. No cyanosis. Neurologic: The patient is alert and oriented x4. LABS: White blood cell count 3.1, hemoglobin 14, hematocrit 41, platelets 225,000. Sodium 134, potassium 3.7, chloride 93, CO2 of 22, BUN 69, creatinine 5.9, glucose 104, phosphorus 5.2, albumin 4.3. ASSESSMENT AND PLAN: 1. Hypertensive urgency. The patient's blood pressure remains markedly elevated. The patient is now on a Cardene drip and his antihypertensives have been adjusted again today. We will continue to monitor for improvement in an intensive care unit setting. 2. Acute kidney injury on chronic kidney disease. This appears to be worsening. Further recommendations as per the marketing communications coordinator. 3. Coronary artery disease with a history of myocardial infarction. Aware. Continue on the current cardiac medications. 4. Tobacco dependence. The patient has been counseled about smoking cessation. 5. Acute diastolic congestive heart failure exacerbation. The patient is currently on diuretic therapy. Continue to monitor closely for improvement. 6. Deep vein thrombosis prophylaxis. Continue on heparin. 7. Constipation. We will start the patient on MiraLAX. cc: Brunilda Salinas MD [facility]
[2019-03-18] MEDS: COREG PO SCH (20:02)
[2019-03-18] MEDS: MIRALAX PO SCH (20:02)
[2019-03-18] MEDS: CULTURELLE PO SCH (20:02)
[2019-03-18] MEDS ORDERED: TRANDATE PO SCH (21:00)
[2019-03-19] MEDS: APRESOLINE PO SCH ×3 (05:00→20:26)
[2019-03-19 05:52] LABS: HEMATOCRIT 37.5 % (42.0-52.0); HEMOGLOBIN 12.6 g/dL (14.0-18.0); MCH 28.3 PG (27-31); MCHC 33.6 g/dL (33-37); MCV 84.1 FL (81-99); MPV 11.1 FL (7.4-10.4); RBC 4.46 XMIL (4.7-6.1); RDW 15.2 % (11.5-14.5); WBC 3.08 X1000 (4.8-10.8)
[2019-03-19 06:16] LABS: ALBUMIN 3.5 g/dL (3.5-5.0); CALCIUM 8.4 mg/dL (8.8-10.2); CREATININE 6.1 mg/dL (0.7-1.2); PHOSPHORUS 5.7 mg/dL (2.7-4.5); POTASSIUM 3.7 mmol/L (3.5-5.1)
[2019-03-19] MEDS: CULTURELLE PO SCH ×2 (08:00→20:26)
[2019-03-19] MEDS: FERROUS SULFATE PO SCH ×2 (08:00→20:26)
[2019-03-19] MEDS: COREG PO SCH ×2 (08:00→20:26)
[2019-03-19] MEDS: ASPIRIN PO SCH (08:00)
[2019-03-19] MEDS: ADALAT CC PO SCH (08:00)
[2019-03-19] MEDS: IMDUR PO SCH (08:00)
[2019-03-19] MEDS: MIRALAX PO SCH ×2 (08:01→20:26)
[2019-03-19] MEDS: HEPARIN SUBQ SCH ×2 (08:01→20:27)
[2019-03-19] MEDS: LASIX IV SCH (08:01)
--- NOTE | 2019-03-19 08:37 | NEPHROLOGY PROGRESS NOTE ---
DATE: 03/19/2019 TIME SEEN: 06. SUBJECTIVE: Mr. Cruz is resting quietly in bed. He is now in ICU. He was transferred midday yesterday for elevated blood pressure and started on a Cardene drip. The patient states that he has an occasional headache. He has not really gotten short of breath but has in the past at home when his blood pressure rises. OBJECTIVE: Vital Signs: Temperature 98.4 degrees, blood pressure 171/105, heart rate 64, respirations 16. He is on room air. Last recorded saturation 100%. He has had 2020 and 1205 out to void. Labs: Sodium 132, potassium 3.7, chloride is 94, CO2 20, BUN 70, creatinine 6.1, glucose is 90, his anion gap is 18, calcium 8.4, albumin 3.5, phosphorus 5.7. White count 3.08, hemoglobin 12.6, hematocrit 37.5, with a platelet count of 206,000. Physical Examination: General: This is a 53-year-old, -Banglades[place] male. He is resting quietly in bed. He appears in no acute distress. His skin is warm and dry. HEENT: Normocephalic, atraumatic. Conjunctivae are pale. He has EKTA. Mucous membranes are dry. Neck: Supple. Trachea midline. He has no JVD in the upright position. Cardiovascular: Regular rate and rhythm. S4 is present. He is currently in the 60s on the monitor. Lungs: Clear to auscultation bilaterally. Equal excursion, on room air. Abdomen: Soft, nontender. Positive bowel sounds. Genitourinary: Not inspected. Patient is voiding adequate amounts. Extremities: Have no edema. No clubbing or cyanosis. Neurological: Alert and oriented x3. ASSESSMENT AND PLAN: 1. Presumed chronic kidney disease with progression secondary to hypertension. The patient has questionable chronic kidney disease stage 5 with worsening of his renal status. BUN and creatinine are elevated at 70 and 6.1 today. Blood pressure remains elevated in spite of having a Cardene drip on board. He had his Coreg increased to 25 mg twice a day. We will increase his hydralazine to 100mg TID. We have spoken to him in regards with possible starting on dialysis if his numbers continue to elevate. The patient states understanding. 2. Uncontrolled hypertension. Patient has a Cardene drip infusing to keep his blood pressure with a MAP of 65, to titrate for maximum dose of 15 mg an hour. He has also had his Coreg increased to 25 mg twice a day. We will increase his hydralazine to 100 mg three times a day. He has also been started on Lasix 80 mg intravenous daily. Continues on nifedipine 90 mg extended release and remains on isosorbide 30 mg. He also has labetalol ordered as needed, prn. We will check his urine today to look for hematuria. He is positive for proteinuria at this time. 3. Electrolytes and acid-base balance. These are acceptable. 4. Anemia. This is in target. 5. Heart failure. This is currently being treated by cardiology. We would like to thank them for their assistance. Dictated by CHARU Loya for Ryan Kauffman MD Face to face encounter, data reviewed, discussed with Mary Jimenez on 03/19/19. I agree with the above assessment and plan of care. cc: CHARU Loya MD [facility]
--- NOTE | 2019-03-19 12:48 | PROGRESS NOTE ---
DATE: 03/19/2019 SUBJECTIVE: The patient is resting comfortably in bed. His Cardene drip is on standby. He states that he is no longer having chest pain and denies any shortness of breath. OBJECTIVE: Vital Signs: Temperature 98.6 degrees, blood pressure 157/106, heart rate 69, respirations 18, O2 saturation is 100% on room air. General: This is an elderly male lying in bed in no acute distress. Head: Normocephalic, atraumatic. Heart: S1, S2 normal. Regular rate and rhythm. Lungs: Clear to auscultation bilaterally. No wheezing. No rales. No rhonchi. Abdomen: Positive bowel sounds. Soft, nontender, nondistended. Extremities: No edema, no cyanosis, no calf tenderness. Neurologic: The patient is alert and oriented x4. LABS: White blood cell count 3, hemoglobin 12, hematocrit 37, platelets 206. Sodium 132, potassium 3.7, chloride 94, CO2 20. BUN 70, creatinine 6.1, glucose 90, phosphorus 5.7, albumin 3.5. ASSESSMENT AND PLAN: 1. Accelerated hypertension. The patient's systolic blood pressures are better; however, the diastolic blood pressure remains in the 100s. Continue with antihypertensive titration. 2. Acute kidney injury on chronic kidney disease. Unchanged. The patient may require dialysis. Further recommendations to follow from the jar capper. 3. Coronary artery disease with a history of myocardial infarction and percutaneous coronary intervention. Continue on the current cardiac medications. 4. Acute diastolic congestive heart failure exacerbation. The patient is currently on diuretic therapy. Management as per the oxyhydrogen welder. 5. Tobacco dependence. The patient has been counseled about smoking cessation. 6. Deep vein thrombosis prophylaxis. The patient is on heparin. cc: Brunilda Salinas MD [facility]
[2019-03-19] MEDS: NITROGLYCERIN SL PRN ×3 (15:14→15:49)
[2019-03-20 01:19] LABS: URINE SOURCE VOIDED
[2019-03-20 01:22] LABS: BILIRUBIN URINE NEGATIVE (NEGATIVE); BLOOD URINE NEGATIVE (NEGATIVE); COLOR YELLOW; GLUCOSE URINE NEGATIVE (NEGATIVE); KETONE URINE NEGATIVE (NEGATIVE); LEUKOCYTES URINE MODERATE (NEGATIVE); NITRITE URINE NEGATIVE (NEGATIVE); PROTEIN URINE 100 mg/dL (NEGATIVE); TURBIDITY URINE CLEAR (CLEAR); UROBILINOGEN URINE NORMAL (NORMAL)
[2019-03-20 01:23] LABS: UR EPITHELIAL CELLS <10 /HPF (<10); URINE BACTERIA NEGATIVE /HPF; URINE RBC <10 /HPF (<10)
[2019-03-20] MEDS: APRESOLINE PO SCH ×3 (03:59→22:03)
[2019-03-20 04:59] LABS: HEMATOCRIT 38.5 % (42.0-52.0); MCH 28.2 PG (27-31); MCHC 33.8 g/dL (33-37); MCV 83.5 FL (81-99); MPV 10.6 FL (7.4-10.4); RBC 4.61 XMIL (4.7-6.1); RDW 15.1 % (11.5-14.5); WBC 4.05 X1000 (4.8-10.8)
[2019-03-20 05:34] LABS: ALBUMIN 3.6 g/dL (3.5-5.0); CALCIUM 9.2 mg/dL (8.8-10.2); CREATININE 5.9 mg/dL (0.7-1.2); POTASSIUM 3.6 mmol/L (3.5-5.1)
[2019-03-20] MEDS: LASIX IV SCH (08:58)
[2019-03-20] MEDS: FERROUS SULFATE PO SCH ×2 (08:59→22:03)
[2019-03-20] MEDS: COREG PO SCH (08:59)
[2019-03-20] MEDS: CULTURELLE PO SCH ×2 (08:59→22:03)
[2019-03-20] MEDS: IMDUR PO SCH (08:59)
[2019-03-20] MEDS: PHOSLO PO SCH ×3 (08:59→17:30)
[2019-03-20] MEDS: ASPIRIN PO SCH (08:59)
[2019-03-20] MEDS: HEPARIN SUBQ SCH ×2 (08:59→22:03)
[2019-03-20] MEDS ORDERED: LEXISCAN ONE (10:09)
[2019-03-20] MEDS ORDERED: AMINOPHYLLINE ONE (10:41)
--- NOTE | 2019-03-20 13:26 | PROGRESS NOTE ---
DATE: 03/20/2019 SUBJECTIVE: The patient is resting comfortably in bed. He denies having any chest pain, shortness of breath, headache or dizziness. OBJECTIVE: Vital Signs: Temperature 98.5 degrees, blood pressure 140/85, heart rate 63, respirations 17, O2 saturations 100% on room air. Intake 1.8 L, output 2.2 L. General: This is a chronically ill-appearing elderly male lying in bed in no acute distress. Heart: S1, S2 normal. Regular rate and rhythm. Lungs: Clear to auscultation bilaterally. Abdomen: Positive bowel sounds. Soft, nontender, nondistended. Extremities: No edema. No cyanosis. Neuro: The patient is alert oriented x4. LABORATORY DATA: White blood cell count 4, hemoglobin 13, hematocrit 38, platelets 226,000. Sodium 132, potassium 3.6, chloride 93, CO2 18, BUN 61, creatinine 4.9, glucose 91. ASSESSMENT/PLAN: 1. Malignant hypertension. Improved. Continue on the current antihypertensive regimen. 2. Chronic kidney disease stage 5. The BUN and creatinine are unchanged. Further recommendations to follow by the hat stock laminating machine operator. 3. Coronary artery disease with a history of myocardial infection and percutaneous coronary intervention. Continue on the current cardiac medications. 4. Acute diastolic congestive heart failure exacerbation. Continue with diuretic therapy as directed by the deputy clerk of superior court. 5. Tobacco dependence. The patient has been counseled about smoking cessation. 6. Deep venous thrombosis prophylaxis. Continue on heparin. 7. The patient is stable for transfer to the medical floor on telemetry. cc: Brunilda Salinas MD [facility]
--- NOTE | 2019-03-20 14:13 | NEPHROLOGY PROGRESS NOTE ---
DATE: 03/20/2019 SUBJECTIVE: Patient is sitting up in bed. He is awake and alert. He does not appear in any distress. He is supposed to be transferred to a regular room later today. He is to go for a stress test this morning. OBJECTIVE: Vital Signs: Temperature 97.3 degrees, pulse 63, respiratory rate 12, blood pressure 130/92. Intake 1.8 L; output 2.2 L. General: This is a middle-aged gentleman sitting up in bed. Awake and alert. No acute distress. HEENT: Normocephalic, atraumatic. EKTA. Neck: Supple with trace JVD. Cardiovascular: Regular rate and rhythm. Gallop. Pulmonary: Clear bilaterally. Abdomen: Soft. Positive bowel sounds. : Not inspected. Extremities: No clubbing, cyanosis, or edema. Integumentary: Skin is warm and dry. LAB DATA: WBC of 4.0, hemoglobin 13.5. Sodium 132, potassium 3.6, CO2 18, creatinine 5.9 (6.0, 5.9). His urinalysis was negative for blood. His phosphorus is 5.0. ASSESSMENT AND PLAN: 1. Chronic kidney disease likely stage V. His creatinine really is unchanged over the last 3 days. Likely he has CKD stage 4-5 from hypertension. It is possible that he could experience some recovery after his BP is controlled for several days/weeks. He is certainly at risk for requiring dialysis soon. 2. Uncontrolled hypertension. He is off the Cardene drip. His blood pressure is fairly stable. He is to be transferred to regular room today after his stress test. 3. Fluid volume. H is fairly euvolemic today. Continue to monitor with fluid restriction. Dictated by CHARU Ibrahim for Ryan Kauffman MD Data reviewed, discussed with Rene Underwood on 03/20/19. I agree with the above assessment and plan of care. cc: Ryan Kauffman MD [facility]
[2019-03-20] MEDS: MIRALAX PO SCH ×2 (14:39→22:03)
[2019-03-20] MEDS: ADALAT CC PO SCH (14:39)
--- NOTE | 2019-03-20 14:48 | Diag Imaging Result Document ---
PROCEDURE NAME: MYOCARDIAL PERF SCAN, STR/REST - 03/17/2019 SUMMARY: The patient underwent resting sestamibi study on 03/18/2019. The patient was administered 11.8 mCi of technetium-99m sestamibi, after which resting cardiac images were obtained. The patient returned for Lexiscan sestamibi study on 03/20/2019 and was administered Lexiscan 0.4 mg intravenously after which the heart rate went from 61 to 67 beats per minute, the blood pressure went from 149/95 to 83/53. With Lexiscan, the patient denied chest discomfort. Following the administration of Lexiscan, the patient was administered 34.0 mCi of technetium-99m sestamibi, after which gated stress cardiac images were obtained. Baseline ECG demonstrated sinus rhythm and left hypertrophy with QRS widening and repolarization abnormality. With Lexiscan, baseline ST and T-wave abnormality did not change significantly. SPECT images were reconstructed in the short, horizontal, vertical long axis. Review of these images demonstrated a small area of moderately diminished activity in the mid anteroseptal region on stress images which appears unchanged on resting images. There is also a small to medium sized area of moderate diminished activity in the basal to mid inferolateral region left ventricle on stress images which appears similar on resting images. No significant reversibility is evident. Gated images demonstrate calculated left ventricular ejection fraction of 54% with symmetrical wall motion. CONCLUSIONS: 1. Adequate response to Lexiscan. 2. Clinically negative for chest pain. 3. Electrocardiographically baseline ST and T-wave abnormality did not change significantly on ECG following administration of Lexiscan. 4. Lexiscan sestamibi images demonstrate small fixed area of moderately diminished activity in the mid anteroseptal region and small to medium size fixed area of mild to moderate diminished activity in the basal inferolateral region left ventricle. The former potentially represents small area of previous infarction while the latter probably is due to soft tissue attenuation. There is no convincing scintigraphic evidence of inducible myocardial ischemia. Calculated left ventricular ejection fraction 54%. cc: MD Josefina Reynaga PA
--- NOTE | 2019-03-20 19:26 | PROGRESS NOTE ---
DATE: 03/20/2019 CARDIOLOGY FOLLOWUP NOTE: SUBJECTIVE: Patient relates feeling well. He had some very brief dizziness immediately after standing, but otherwise has not had any lightheadedness. There has been no chest pain. No shortness of breath. OBJECTIVE: Vital Signs: Blood pressure 159/100, heart rate 73. Oxygen saturation 100% on room air. There is no significant jugular venous distention. Chest: Clear to auscultation bilaterally. Cardiac: Reveals a regular rate and rhythm without appreciable murmur or gallop. 100% on room air. There is no significant jugular venous distention. Chest: Clear to auscultation. Cardiac: Reveals a regular rate and rhythm. S4 gallops present. Abdomen: Soft. Bowel sounds are normal. Extremities: Without edema. LABORATORY DATA: Includes white blood cell count 4.05, hematocrit 38.5, hemoglobin 13.0 platelet count 226,000. Sodium 132, potassium 3.6, chloride 93, exercise 18, BUN 69, creatinine 5.9, glucose 91. IMPRESSION: 1. Chest discomfort with mixed features. Lexiscan myocardial perfusion study performed today reveals no objective evidence of inducible myocardial ischemia. 2. Renal failure. 3. Hypertensive cardiovascular disease with severe hypertension and severe concentric left hypertrophy. Blood pressure still mildly elevated despite current regimen. 4. Atherosclerotic coronary disease with previous acute inferior myocardial infarction January 2018 treated with angioplasty and stenting of occluded right coronary artery with drug-eluting stent. 5. Chronic cigarette use. RECOMMENDATIONS: 1. Medical management for patient's coronary atherosclerosis. 2. Switch from Coreg to labetalol to try and optimize blood pressure control. 3. It is reasonable for patient to be discharged to home soon from a cardiovascular standpoint once his blood pressure is consistently controlled. I will be happy to see him further on followup in approximately 3 weeks. cc: Sandeep Marvin MD
[2019-03-20] MEDS: TRANDATE PO SCH (22:03)
[2019-03-21] MEDS: APRESOLINE PO SCH ×3 (04:38→20:13)
[2019-03-21 08:03] LABS: ALBUMIN 4.2 g/dL (3.5-5.0); CALCIUM 8.4 mg/dL (8.8-10.2); CREATININE 6.1 mg/dL (0.7-1.2); PHOSPHORUS 5.2 mg/dL (2.7-4.5); POTASSIUM 3.4 mmol/L (3.5-5.1)
[2019-03-21] MEDS: LASIX IV SCH (08:36)
[2019-03-21] MEDS: FERROUS SULFATE PO SCH ×2 (08:36→20:13)
[2019-03-21] MEDS: HEPARIN SUBQ SCH ×2 (08:37→20:13)
[2019-03-21] MEDS: ASPIRIN PO SCH (08:37)
[2019-03-21] MEDS: TRANDATE PO SCH ×2 (08:37→20:13)
[2019-03-21] MEDS: CULTURELLE PO SCH ×2 (08:37→20:13)
[2019-03-21] MEDS: PHOSLO PO SCH ×3 (08:37→17:12)
[2019-03-21] MEDS: ADALAT CC PO SCH (08:37)
[2019-03-21] MEDS: IMDUR PO SCH (08:37)
[2019-03-21] MEDS: MIRALAX PO SCH ×2 (08:38→20:13)
--- NOTE | 2019-03-21 11:58 | PROGRESS NOTE ---
DATE: 03/21/2019 SUBJECTIVE: The patient is resting comfortably in bed. He states that he feels great. He denies having any chest pain, headache, dizziness or shortness of breath. OBJECTIVE: Vital Signs: Temperature 98 degrees, blood pressure 142/93, heart rate 68, respirations 18, O2 saturation 99% on room air. General: This is a chronically ill-appearing elderly male, sitting up in bed in no acute distress. Heart: S1, S2 normal. Regular rate and rhythm. Lungs: Equal air entry bilaterally. No crackles. No rales. Abdomen: Positive bowel sounds. Soft, nontender, nondistended. Extremities: No edema, no cyanosis. Neurologic: The patient is alert and oriented x4. LABORATORY DATA: Sodium 128, potassium 3.4, chloride 87, CO2 23, BUN 68, creatinine 6.1, glucose 104. ASSESSMENT AND PLAN: 1. Chronic kidney disease stage 5. Stable. The patient has a 24-hour urine in progress. Further recommendations to follow from the salesperson yard goods. 2. Uncontrolled hypertension. Improved. Continue on the current antihypertensive regimen. 3. Coronary artery disease with a history of myocardial infarction and percutaneous coronary intervention. Continue on the current cardiac medications. 4. Diastolic congestive heart failure. The patient remains on diuretic therapy. 5. Tobacco dependence. The patient has been counseled about smoking cessation. 6. Deep vein thrombosis prophylaxis. Continue on heparin. 7. Disposition. Will consult with the dietitian to give the patient dietary recommendations. cc: Brunilda Salinas MD
--- NOTE | 2019-03-21 13:39 | NEPHROLOGY PROGRESS NOTE ---
DATE: 03/21/2019 SUBJECTIVE: Patient resting in bed. He has no complaints today. OBJECTIVE: Vital Signs: Temperature afebrile, respiratory rate 18, blood pressure 142/93, intake 1 L, output 475 mL . PHYSICAL EXAMINATION: General: Middle-aged gentleman resting in bed awake alert, no acute distress. HEENT: Normocephalic, atraumatic. EKTA. Neck: Supple with trace JVD. Cardiovascular: Regular rate and rhythm with a gallop. Pulmonary: Clear bilaterally. Abdomen: Soft, positive bowel sounds. : Voiding. Extremities: No clubbing, cyanosis. He might have some trace pretibial edema. Integumentary: Skin is warm and dry. LAB DATA: Pending. His creatinine over the last 2 days prior was 5.9, 6.1. Has been quite stable. ASSESSMENT AND PLAN: 1. Chronic kidney disease likely stage 5. He has a 24 hour urine in progress right now. Once we have results of that will be able to develop a plan of care. 2. Uncontrolled hypertension. He is now off the Cardene drip. He is on p.o. medications and has much improved blood pressures. 3. Fluid volume. He is a little bit positive territory but I am not sure if they are measuring the urine in the 24 hour collection container. Dictated by CHARU Ibrahim for Ryan Kauffman MD cc: Ryan Kauffman MD [facility]
[2019-03-21 17:47] LABS: UR CREATININE 57.2 mg/dL (14-26); UR PROTEIN 60.8 mg/dL
[2019-03-21 17:48] LABS: UR CREATININE TOTAL 1172.6 mg/24 (800-1800)
[2019-03-21 17:50] LABS: CREATININE 6.1 mg/dL (0.7-1.2)
[2019-03-22] MEDS: APRESOLINE PO SCH ×3 (05:16→20:20)
[2019-03-22 07:41] LABS: ALBUMIN 3.9 g/dL (3.5-5.0); CALCIUM 8.6 mg/dL (8.8-10.2); CREATININE 5.7 mg/dL (0.7-1.2); PHOSPHORUS 4.3 mg/dL (2.7-4.5); POTASSIUM 3.3 mmol/L (3.5-5.1)
[2019-03-22] MEDS: LASIX IV SCH (09:23)
[2019-03-22] MEDS: CULTURELLE PO SCH ×2 (09:23→20:20)
[2019-03-22] MEDS: ASPIRIN PO SCH (09:24)
[2019-03-22] MEDS: PHOSLO PO SCH ×3 (09:24→17:20)
[2019-03-22] MEDS: FERROUS SULFATE PO SCH ×2 (09:24→20:20)
[2019-03-22] MEDS: TRANDATE PO SCH ×2 (09:24→20:20)
[2019-03-22] MEDS: HEPARIN SUBQ SCH ×2 (09:24→20:20)
[2019-03-22] MEDS: ADALAT CC PO SCH (09:24)
[2019-03-22] MEDS: MIRALAX PO SCH ×2 (09:25→20:19)
[2019-03-22] MEDS: IMDUR PO SCH (09:27)
--- NOTE | 2019-03-22 09:30 | NEPHROLOGY PROGRESS NOTE ---
DATE: 03/22/2019 SUBJECTIVE: Patient is sitting up in bed. He has been able to eat all of his breakfast without issue. He has had no nausea or vomiting. He has been able to ambulate. He denies any uremic symptoms when specifically questioned. OBJECTIVE: Vital Signs: Temperature 98 degrees, pulse 69, respiratory rate 18, blood pressure 138/86. Intake 1.1 L. Output 375 mL plus voids that were not measured. General: This is a middle-aged gentleman sitting up in bed. Awake and alert. No acute distress. HEENT: Normocephalic, atraumatic. His conjunctivae are pink. Oral mucosa is moist. Neck: Supple. Continues with trace JVD. Cardiovascular: Regular rate and rhythm with an S4. Pulmonary: He is clear bilaterally. He is currently on room air. Abdomen: Soft, with positive bowel sounds. : Voiding. Extremities: No clubbing, cyanosis. He has no edema today. Integumentary: Skin is warm and dry. Neurologic: Grossly nonfocal. Lab Data: His creatinine clearance is 13%. His creatinine is 5.7, sodium 135, potassium 3.3, CO2 28. ASSESSMENT/PLAN: 1. Chronic kidney disease stage 5. Discussed with the patient the likelihood that he will need dialysis in the near future. He is not uremic at this time and does not have any outstanding labs that would indicate emergency intervention. We had consult consulted the patient of the importance of close followup with us in the office and to develop a plan of care for his future needs. The patient is in agreement. 2. Uncontrolled hypertension, in target today. Continue his current treatment plan. Follow up closely in the office. 3. Fluid volume. He does not have edema today and has no issues from that standpoint. 4. Disposition. We will make an appointment for followup with this patient within 2 weeks of discharge. Dictated by CHARU Ibrahim for Ryan Kauffman MD cc: Ryan Kauffman MD
[2019-03-22] MEDS ORDERED: KLOR-CON PO ONE (10:10)
--- NOTE | 2019-03-22 16:20 | PROGRESS NOTE ---
DATE: 03/22/2019 SUBJECTIVE: The patient is resting comfortably in bed. He has no complaints. He is tolerating his diet. He is no longer having chest pain, shortness of breath, or headache. OBJECTIVE: Vital Signs: Temperature 98.6 degrees, blood pressure 147/89, heart rate 67, respirations 18. O2 saturation is 100% on room air. General: This is an elderly male sitting up in bed in no acute distress. Head: Normocephalic, atraumatic. Heart: S1, S2 normal. Regular rate and rhythm. Lungs: Clear to auscultation bilaterally. Abdomen: Positive bowel sounds. Soft, nontender, nondistended. Extremities: No edema, no cyanosis. Neurologic: The patient is alert and oriented x4. LABS: Sodium 135, potassium 3.3, chloride 95, CO2 28, BUN 64, creatinine 5.7, glucose 102. ASSESSMENT AND PLAN: 1. Chronic kidney disease stage 5. Stable. The patient will follow up with Dr. Kauffman as outpatient to discuss dialysis. 2. Uncontrolled hypertension. Improved. Continue on the current regimen. 3. Coronary artery disease with a history of myocardial infarction and PCI. Stable. 4. Diastolic congestive heart failure. Will transition the patient to oral diuretic therapy. 5. Tobacco dependence. The patient has been counseled about smoking cessation. 6. Deep vein thrombosis prophylaxis. Continue on heparin. 7. Disposition. The patient will require assistance with obtaining his medications. Social Media Community Manager has been consulted to assist with this. The patient should be able to be discharged home on Saturday. We will also have a dietitian come and talk to the patient about dietary recommendations given his multiple medical issues. cc: Brunilda Salinas MD [facility]
[2019-03-23] MEDS: APRESOLINE PO SCH ×3 (06:12→12:37)
[2019-03-23 07:25] LABS: ALBUMIN 3.9 g/dL (3.5-5.0); CALCIUM 8.9 mg/dL (8.8-10.2); CREATININE 5.8 mg/dL (0.7-1.2); PHOSPHORUS 4.4 mg/dL (2.7-4.5); POTASSIUM 3.9 mmol/L (3.5-5.1)
[2019-03-23 07:34] VITALS: BP 145/95
[2019-03-23] MEDS: LASIX PO SCH ×2 (07:46→09:49)
[2019-03-23] MEDS: ASPIRIN PO SCH ×2 (07:46→09:50)
[2019-03-23] MEDS: PHOSLO PO SCH ×2 (07:46→12:37)
[2019-03-23] MEDS: IMDUR PO SCH ×2 (07:46→09:49)
[2019-03-23] MEDS: MIRALAX PO SCH ×2 (07:46→09:49)
[2019-03-23] MEDS: CULTURELLE PO SCH ×2 (07:47→09:49)
[2019-03-23] MEDS: ADALAT CC PO SCH ×2 (07:47→09:49)
[2019-03-23] MEDS: FERROUS SULFATE PO SCH ×2 (07:47→09:49)
[2019-03-23] MEDS: HEPARIN SUBQ SCH ×2 (07:47→09:49)
[2019-03-23] MEDS: TRANDATE PO SCH ×2 (07:47→09:49)
--- NOTE | 2019-03-23 10:11 | NEPHROLOGY PROGRESS NOTE ---
DATE: 03/23/2019 TIME SEEN: 0645. SUBJECTIVE: Mr. Cruz is resting quietly in bed, states that he is feeling much better. He denies any chest pain. No increased work of breathing. OBJECTIVE: His most recent vital signs show temperature 98.1 degrees, blood pressure 133/88, heart rate is 71, respirations are 14. He is on room air. His last recorded saturation is 100%. He has had 880 and 2075 out. LABORATORY DATA: Sodium 134, potassium 3.9, chloride 95, CO2 25, BUN 64, creatinine 5.8, glucose 85. His anion gap is 14, calcium is 8.9, phosphorus 9.4, albumin is 3.9. Previous hemoglobin of 13. PHYSICAL EXAMINATION: General: This is a 53-year-old -[place] male. He is resting quietly in bed. Skin: Warm and dry. HEENT: Normocephalic, atraumatic. Conjunctiva is pale pink. He has EKTA. Mucous membranes are dry. Neck: Supple. Trachea midline. No evidence of JVD. Cardiovascular: Regular rate and rhythm. He has a systolic left ventricular heave, S4 and a soft systolic murmur present. Lungs: Clear to auscultation bilaterally. Equal excursion on room air. Abdomen: Soft, nontender. Positive bowel sounds. Genitourinary: Not inspected. Minimal void at this time. Extremities: Have no edema. No clubbing or cyanosis. Neurological: Alert and oriented x3. ASSESSMENT AND PLAN: 1. Chronic kidney disease stage 5. The patient has no complaints of uremic symptoms. His blood pressure is now under control. We have requested that he get weekly labs with assistance from the hospital prior to discharge to plan for followup in 2 to 3 weeks with in our office. Continue blood pressure medications. 2. Electrolytes and acid-base balance. These are acceptable. 3. Anemia. This is in target. 4. Disposition. Again, the patient is to follow up in our office within 2 to 3 weeks after discharge with labs. I would like to thank you for allowing us to follow with this patient. Dictated by CHARU Loya for Ryan Kauffman MD Face to face encounter, data reviewed, discussed with Mary Jimenez on 03/23/19. I agree with the above assessment and plan of care. cc: CHARU Loya MD [facility]
--- NOTE | 2019-03-24 08:24 | DISCHARGE SUMMARY ---
ADMISSION DATE: 03/16/2019 DISCHARGE DATE: 03/23/2019 FINAL DISCHARGE DIAGNOSES: 1. Accelerated hypertension. 2. Chronic kidney disease stage 5. 3. Acute diastolic congestive heart failure exacerbation. 4. Coronary artery disease. 5. History of myocardial infarction with percutaneous coronary intervention. 6. Tobacco dependence. CONSULTATIONS: 1. Cardiology consultation with Dr. Marvin. 2. Nephrology consultation with Dr. Kauffman. HOSPITAL COURSE: Mr. Cruz is a 53-year-old male with a history of chronic kidney disease, hypertension, and coronary artery disease, who presented to the ER with a chief complaint of chest pain and high blood pressure. On admission, the patient was noted to have a blood pressure of 209/138, and was complaining of active chest pain. Initial cardiac enzymes were done and noted to be negative. Also, the patient was noted to have a proBNP of greater than 35,000. A chest x-ray was done that revealed pulmonary vascular congestion. The patient was admitted to the Hospitalist Service, and Cardiology was consulted. The patient was also noted to have a BUN of 63, with a creatinine of 5.4, and this appeared to be an increase in comparison to the patient's renal function back in 12/2018, where his creatinine was noted to be 3.5. Nephrology was also consulted for assistance with management. The patient's blood pressure continued to remain uncontrolled. As a result, the patient was transferred to the ICU and placed on a Cardene drip, and further adjustments were made to the patient's oral antihypertensive regimen. The Cardene drip was eventually weaned off, and the patient's blood pressure stabilized on the new regimen of medication. The patient was also treated with Lasix to aid with diuresis. The patient was counseled extensively about the importance of dietary restrictions of salt and fatty foods. He was also counseled about smoking cessation. It was thought that the patient's renal dysfunction was likely secondary to the patient's poorly-controlled hypertension for several years. The patient's creatinine did peak at 6.1, and today on the day of discharge, it was noted to be 5.8. The patient will follow up with Dr. King as scheduled on 04/09/2019. The patient was also advised that if his renal function continued to worsen, he would likely require dialysis in the near future. The patient today is clinically stable for discharge home. His blood pressure at this time is 133/88. DISCHARGE MEDICATIONS: 1. Nifedipine 90 mg p.o. daily. 2. Hydralazine 100 mg p.o. every 8 hours. 3. Imdur 30 mg p.o. daily. 4. PhosLo 667 mg oral 3 times a day with meals. 5. Labetalol 200 mg oral twice a day. 6. Lasix 80 mg p.o. daily. 7. Ferrous sulfate 325 mg oral twice a day. 8. Aspirin 81 mg p.o. daily. 9. Ultram 50 mg oral every 6 hours p.r.n. for pain. DISCHARGE DIET: Low-sodium, low-cholesterol diet. ACTIVITY: As tolerated. FOLLOWUP INSTRUCTIONS: The patient is scheduled to follow up with Dr. King on 04/09/2019 at 2 p.m. The patient will also need to have a basic metabolic profile done this week, and the results will be faxed to Dr. King's office. The patient will need to follow up with Dr. Marvin on 04/13/2019 at 9 a.m. cc: Brunilda Salinas MD [facility]
== END 2019-03-23 12:57 | disposition home or self-care (01) | DRG 291 ==
LOC: ED 10:12 → SUATTDRO 14:43 → 3N 14:43 → ICU 03-18 11:18 → 3N 03-20 10:32
PROVIDERS: ATTEND Internal Medicine
CPT/HCPCS: 71010; 71045; 76770; 78452; 80053; 80069; 80101; 80301; 80307; 80324; 80345; 80346; 80353; 80358; 80361; 80365; 81001; 81050; 82550; 82570; 82575; 83036; 83735; 83880; 83935; 83992; 84156; 84300; 84436; 84443; 84484; 84540; 85025; 85027; 85610; 85730; 87205; 93005; 93010; 93017; 93306; 94761; 96374; 96375; 99285; A9270; A9500; G0431; G0434; G0479; G0480; J0280; J0360; J0820; J1644; J1940; J2785

== ENCOUNTER 2019-07-14 18:09 | Inpatient (IN) ==
[2019-07-14] MEDS ORDERED: APRESOLINE IV ONE ×2 (18:35→19:46)
--- NOTE | 2019-07-14 18:36 | PROVIDER DOCUMENTATION ---
HPI-Cardiac General - General Chief Complaint: B/P Problems Stated Complaint: HIGH BP/HEADACHE/FEVER Time Seen by Provider: 07/14/19 18:22 Source: patient Allergies/Adverse Reactions: Patient Allergies Allergy/AdvReac Type Severity Reaction Status Date / Time No Known Allergies Allergy Verified 07/14/19 18:43 Home Medications: Home Medication List Medication Instructions Recorded Confirmed Last Taken Type Aspirin 81 mg PO QAM 03/22/18 07/14/19 03/16/19 07:00 History 81 mg Calcium Acetate [Phoslo] 667 mg PO TID CC #90 tab 03/23/19 07/14/19 Unknown Rx Atorvastatin Calcium [Lipitor] 40 mg PO DAILY 07/14/19 07/14/19 Unknown History Hydrochlorothiazide 25 mg PO DAILY 07/14/19 07/14/19 Unknown History Metoprolol Succinate E.r. [Toprol 100 mg PO DAILY 07/14/19 07/14/19 Unknown History Xl] Prasugrel [Effient] 1 tab PO DAILY 07/14/19 07/14/19 Unknown History - History of Present Illness-Cardiac Nature of Presenting Problem: 54 yr old M, with hx of HTN, stent placement in 2017, renal disease, presenting with a three day hx of worsening headache, visual changes, non-radiating central chest pressure. He thought he was developing a sinus infection and took lots of OTC sinus medications. He reports developing a non-radiating chest pressure yesterday which spontaneously resolved in a few seconds. He also reported SOB with exertion, which was different for him. Location: reports: central Quality of Pain: reports: pressure Severity in ED: mild Onset/Duration: 24 hours ago Timing: gone now, resolved prior to arrival Context/Activities at Onset: reports: none Modifying Factors: improves with: nothing History of arrythmia: reports: none Recent use of:: reports: other (taking Sudafed for possible sinus infection) Nitro Today/Relief: reports: 0.4 mg x 1, provided by ED Aspirin Treatment Today: reports: 81 mg x 1, provided at home Prior Chest Pain/Cardiac Workup: reports: other (stent placement) Associated Symptoms: reports: denies symptoms Similar Symptoms Previously?: Yes (2017, was hospitalized with similar symptoms, ended up getting stent) Review of Systems - Adult - REVIEW OF SYSTEMS - ADULT Constitutional: reports: no symptoms reported Eyes: reports: blurred vision Ears, Nose, Mouth & Throat: reports: no symptoms reported Cardiovascular: reports: chest pain Respiratory: reports: shortness of breath Gastrointestinal: reports: no symptoms reported Genitourinary: reports: no symptoms reported Musculoskeletal: reports: no symptoms reported Integumentary: reports: no symptoms reported Neurological: reports: headache/migraines Past History - Adult - PAST MEDICAL HISTORY-ADULT Review of Records: reports: Old Records Reviewed, Nursing Assessment Review Major Childhood Illnesses: reports: denies history Cardiovascular: reports: HTN, [place] Respiratory: reports: denies history Gastrointestinal: reports: other (ETOH occ) Obstetrical/Gynecological: reports: denies history Genitourinary: reports: denies history Musculoskeletal: reports: denies history Neurological: reports: denies history Endocrine/Immune: reports: denies history Other Conditions: reports: denies history - PRIOR SURGERIES/PROCEDURES Surgical/Procedure History: reports: cardiac stent, other (eye) - IMMUNIZATION STATUS Childhood Immunizations: See Nurse Assessment Flu Vaccine: See Nurse Assessment - FAMILY HISTORY Family History: diabetes Physical Exam-General - CONSTITUTIONAL General Appearance: alert, mild distress - EYES Eyes: PERRL/EOMI, scleral icterus - HEAD, EARS, NOSE, MOUTH & THROAT HENMT: normocephalic/atraumatic, moist mucous membranes - RESPIRATORY Respiratory: lungs clear, normal breath sounds - CARDIOVASCULAR Cardiovascular: regular rate, rhythm - GASTROINTESTINAL (ABDOMEN) Abdominal Exam: normal bowel sounds, non tender, soft - MUSCULOSKELETAL Extremity: no pedal edema, no calf tenderness - SKIN Integumentary: warm/dry - NEUROLOGIC Neurologic: no motor/sensory deficits - PSYCHIATRIC Psych/Mental Status: normal mood/affect, oriented x 3 - HEART Score HEART Score: History: Moderately Suspicious HEART Score: ECG: Non-Specific Repolarization Disturbance/LBBB/PM HEART Score: Age: 45-65 Years HEART Score: Risk Factors for Atherosclerotic Disease: > or = 3 Risk Factors or History of Atherosclerotic Disease HEART Score: Troponin: < or = Normal Limit Total HEART Score:: 5 Progress - PLAN OF CARE/RESULTS Progress/Plan/Lab Results: Vital Signs - 8 hr 07/14/19 18:15 07/14/19 20:17 Temperature 98.8 F Pulse Rate 83 Pulse Rate [Sitting] 86 Pulse Rate [Standing] 88 Pulse Rate [Supine] 79 Respiratory Rate 16 Blood Pressure 236/160 Blood Pressure [Sitting] 215/138 Blood Pressure [Standing] 221/144 Blood Pressure [Supine] 214/135 O2 Sat by Pulse Oximetry 97 Laboratory Results - last 24 hr 07/14/19 07/14/19 07/14/19 18:35 18:35 18:35 WBC 5.08 RBC 4.47 L Hgb 13.3 L Hct 41.2 L MCV 92.2 MCH 29.8 MCHC 32.3 L RDW Std Deviation 15.8 H Plt Count 275 MPV 10.1 Immature Gran % (Auto) 0.0 Neut % (Auto) 52.7 Lymph % (Auto) 25.0 Izard % (Auto) 13.6 H Eos % (Auto) 7.7 Baso % (Auto) 1.0 H Immature Gran # (Auto) 0.00 Neut # (Auto) 2.68 Lymph # (Auto) 1.27 Izard # (Auto) 0.69 H Eos # (Auto) 0.39 Baso # (Auto) 0.05 PT 12.3 INR 0.91 PTT (Actin FS) 31.7 Sodium 141 Potassium 4.4 Chloride 106 Carbon Dioxide 18 L Anion Gap 17 BUN 50 H Creatinine 5.3 H Estimated GFR/1.73 m2 14 BUN/Creatinine Ratio 9 Glucose 92 Calculated Osmolality 294 Calcium 8.8 Total Bilirubin 0.24 AST 17 ALT 16 Alkaline Phosphatase 50 Creatine Kinase 146 Troponin T Total Protein 7.2 Albumin 4.4 Globulin 2.8 Albumin/Globulin Ratio 1.6 Urine Source Urine Color Urine Turbidity Urine pH Ur Specific Bronaugh Urine Protein Ur Glucose (Stick) Ur Ketones (Stick) Urine Blood Urine Nitrite Urine Bilirubin Urobilinogen Dipstick Urine Leukocytes Urine WBC (Auto) Urine RBC (Auto) U Epithel Cells (Auto) Urine Bacteria (Auto) 07/14/19 07/14/19 18:35 20:16 WBC RBC Hgb Hct MCV MCH MCHC RDW Std Deviation Plt Count MPV Immature Gran % (Auto) Neut % (Auto) Lymph % (Auto) Izard % (Auto) Eos % (Auto) Baso % (Auto) Immature Gran # (Auto) Neut # (Auto) Lymph # (Auto) Izard # (Auto) Eos # (Auto) Baso # (Auto) PT INR PTT (Actin FS) Sodium Potassium Chloride Carbon Dioxide Anion Gap BUN Creatinine Estimated GFR/1.73 m2 BUN/Creatinine Ratio Glucose Calculated Osmolality Calcium Total Bilirubin AST ALT Alkaline Phosphatase Creatine Kinase Troponin T 0.019 Total Protein Albumin Globulin Albumin/Globulin Ratio Urine Source CLEAN CATCH Urine Color STRAW Urine Turbidity CLEAR Urine pH 7.0 Ur Specific Bronaugh 1.013 Urine Protein 300 A Ur Glucose (Stick) NEGATIVE Ur Ketones (Stick) NEGATIVE Urine Blood TRACE A Urine Nitrite NEGATIVE Urine Bilirubin NEGATIVE Urobilinogen Dipstick NORMAL Urine Leukocytes NEGATIVE Urine WBC (Auto) <10 Urine RBC (Auto) <10 U Epithel Cells (Auto) <10 Urine Bacteria (Auto) NEGATIVE Orders Category Date Time Status Cardiac Monitoring DIRECTED Care 07/14/19 18:35 Active CHEST-2 VIEWS [RAD] Stat Exams 07/14/19 19:[address] HEAD W/O CONTRAST [CT] Stat Exams 07/14/19 21:55 Completed CBC WITH ELECTRONIC DIFF [HEME] Stat Lab 07/14/19 18:35 Completed CK PROFILE [SP CHEM] Stat Lab 07/14/19 18:35 Completed COMPREHENSIVE METABOLIC PANEL [CHEM] Stat Lab 07/14/19 18:35 Completed PROTIME WITH INR [COAG] Stat Lab 07/14/19 18:35 Completed PTT [COAG] Stat Lab 07/14/19 18:35 Completed TROPONIN T Stat Lab 07/14/19 18:35 Completed URINALYSIS W/POSS RFLX CULT [URINALYSIS] Stat Lab 07/14/19 20:16 Completed Acetaminophen [Tylenol] Med 07/14/19 18:54 Discontinued 1,000 mg PO NOW ONE Aspirin Med 07/14/19 18:51 Discontinued 325 mg PO NOW ONE Hydralazine [Apresoline] Med 07/14/19 18:35 Discontinued 10 mg IV NOW ONE Hydralazine [Apresoline] Med 07/14/19 19:46 Discontinued 10 mg IV NOW ONE Labetalol Med 07/14/19 21:55 Discontinued 20 mg IV NOW ONE Nitroglycerin Med 07/14/19 18:51 Discontinued 1 inch TOP NOW ONE Ondansetron [Zofran] Med 07/14/19 18:37 Discontinued 8 mg IV NOW ONE EKG [EKG] Stat Ther 07/14/19 18:29 Draft Pt's BP is not improving with medication in the ED; labs are largely unremarkable at this time; HEART score of 5; pt signed out to Dr. Loza, who will discuss case with hospitalist. I informed the pt of the change of providers and updated him on his results to date. Result Diagrams: 07/14/19 18:35 07/14/19 18:35 - REASSESSMENT Reassessment #1 Time Reassessed: 22:00 Status: other (PER SIGN OUT, ELEVATED BLOOD PRESSURE OF SYSTOLIC IN 260S AND DIASTOLIC IN 150S AND CAME IN WITH HEADACHE, BLURRY VISION, NAUSEA AND HYDRAL AZINE WAS GIVEN TO LOWER BLOOD PRSSURE BUT HAS NOT BEEN SUCCESSFUL. DURING MY INITAL EVALUATION, PATIENT STATES FOR THE PAST 3 DAYS, SHE HAS BEEN HAVING HEADACHE, NAUSEA, BLURRY VISION, AND EYE PAIN AND NOTICED THAT HIS BLOOD PRESSURE IS ELEVATED THAT MACHINE WON'T REGISTER THE NUMBERS. DECIDED TO COME IN. PHYSICAL EXAM UNREMARKABLE EXCEPT CONJUNCTIVA APPEARS REDISH. BLOOD PRESSURE WAS ELEVATED IN 230/150 WITH HEART RATE OF 88S AND I IMMEDIATELY ORDERED LABETOLOL 20MG IV AND ALSO HEAD CT.) Reassessment #2 Time Reassessed: 22:51 Status: improving (BLOOD PRESSURE IMPROVED AND PATIENT STATES SYMPTOSM RESOVLED; PATIENT HAD HYPERTENSIVE EMERGENCY/ENCEPHALOPATHY; WILL ADMIT. [facility] AND APPREAICTE THEIR ASSITANCE.) - EKG 1 Time of EKG reading by physician:: 18:24 EKG Read and Signed by:: Alcon Marrero EKG Interpretation (*Must complete 3 of following elements*): Abnormal Rate: 77 Rhythm: sinus rhythm with PVCs Sibley: left QRS: LVH - XRAY 1 XRAY Study: Chest ([facility] - [address] [place] [address] [place] [phone] [facility] - [address] [place] [address] Department of Imaging Patient: STONEY OLSENDM Date: 07/14/19MR#: [id number] : 1965ADM Status: PRE ERAcct#: [id number] Age/Sex: 54/MRoom/Bed: Loc: ED Ordering Physician: Chico Coronel MD Family Physician: None,PCP Reason for Procedure: CP Signed EXAM: CHEST-2 VIEWS HISTORY: CP TECHNIQUE: Chest two views COMPARISON: 03/18/2019 FINDINGS: The lungs are well expanded. The heart is enlarged. The vessels are mildly distended. There are no infiltrates. No pleural effusions. IMPRESSION: Cardiomegaly with central vascular distention. Electronically signed by Jean Marie Kaminski 07/14/2019 8:40 PM 07/14/192039 Interpreting Physician: Jean Marie Kaminski MD Dictated Date/Time: 07/14/192038 cc: Chico Coronel MD; None,PCP) - CT/MRI 1 CT Study: Head ([facility] - [address] [place] [address], [address] [place] [phone] [facility] - [address] [place] [address] Department of Imaging Patient: STONEY OLSEN Date: 07/14/19MR#: [id number] : 1965ADM Status: [facility] ERAcct#: [id number] Age/Sex: 54/MRoom/Bed: Loc: ED Ordering Physician: Yazmin Loza MD Family Physician: None,PCP Reason for Procedure: hypertnsisve ememrgneyc Signed EXAM: CT HEAD W/O CONTRAST HISTORY: hypertnsisve ememrgneyc TECHNIQUE: CT head without contrast. COMPARISON: None. FINDINGS: No parenchymal hemorrhage. No epidural or subdural hematoma. No subarachnoid hemorrhage. Small old left cerebellar infarct. No mass identified on this noncontrasted exam. No hydrocephalus. No sinus opacification. IMPRESSION: 1.No hemorrhage 2.Small old left cerebellar infarct. This exam was performed using automated exposure control, adjustment of mA or kV according to patient size, and/or use of iterative reconstruction technique. Electronically signed by Jean Marie Kaminski 07/14/2019 10:20 PM 1 2219 Interpreting Physician: Jean Marie Kaminski MD Dictated Date/Time: 07/14/192217 cc: Yazmin Loza MD; None,PCP) - CHANGE OF SHIFT REPORT (ED Provider) 1 Report Given and Care Transferred to:: Dr. Loza Time of Transfer: 20:10 Items Pending: Labs, XRAY Results, Physician Consult/Arrival Departure - Departure Date of Disposition Decision: 07/14/19 Time of Disposition Decision: 20:08 DIAGNOSIS: Hypertensive emergency, Hypertensive encephalopathy Disposition: ADMITTED INPATIENT 09 Certified Medical Emergency: Emergent Condition: Critical Referrals and Follow-Ups: None,PCP [Primary Care Provider] - - Critical Care Note This patient required my direct & personal management of CC.: Yes Total Time (mins): 35 Critical Care Statement: This patient required my direct personal management to treat or rule out processes, the absence of which, could potentiallly result in sudden, clinically significant life or limb threatening deterioration. Attestation - Physician/ JAMES Attestation Patient care was provided by Advanced Practice Provider:: No The physician spent face to face time with patient:: Yes Advanced Practice Provider documentation review:: Supervising physician onsite and consulted in the evaluation and care of this patient. The physician did have a face to face encounter with the patient.
[2019-07-14] MEDS ORDERED: ZOFRAN IV ONE (18:37)
[2019-07-14 18:47] LABS: BASO# 0.05 X1000 (0.0-0.2); EOS# 0.39 X1000 (0.0-0.7); EOS% 7.7 % (0.0-10.0); HEMATOCRIT 41.2 % (42.0-52.0); HEMOGLOBIN 13.3 g/dL (14.0-18.0); LYMPH# 1.27 X1000 (1.2-3.4); MCH 29.8 PG (27-31); MCHC 32.3 g/dL (33-37); MCV 92.2 FL (81-99); MONO# 0.69 X1000 (0.11-0.59); MONO% 13.6 % (1.7-9.3); MPV 10.1 FL (7.4-10.4); NEUT# 2.68 X1000 (1.4-6.5); NEUT% 52.7 % (42.2-75.2); PLT 275 X1000 (130-400); RBC 4.47 XMIL (4.7-6.1); RDW 15.8 % (11.5-14.5); WBC 5.08 X1000 (4.8-10.8)
[2019-07-14] MEDS ORDERED: NITROGLYCERIN TOP ONE (18:51)
[2019-07-14] MEDS ORDERED: ASPIRIN PO ONE (18:51)
[2019-07-14] MEDS ORDERED: TYLENOL PO ONE (18:54)
[2019-07-14 19:10] LABS: INR 0.91; PROTIME 12.3 Seconds (11.0-16.0); PTT 31.7 Seconds (22.3-41.8)
[2019-07-14 19:39] LABS: ALB/GLOB RATIO 1.6; ALBUMIN 4.4 g/dL (3.5-5.0); CALCIUM 8.8 mg/dL (8.8-10.2); POTASSIUM 4.4 mmol/L (3.5-5.1); TOTAL BILIRUBIN 0.24 mg/dL (0.20-1.00); TOTAL PROTEIN 7.2 g/dL (6.3-8.3)
[2019-07-14 19:47] LABS: CREATININE 5.3 mg/dL (0.7-1.2)
--- NOTE | 2019-07-14 20:17 | EKG Report ---
Test Performed on : 07/14/2019 6:24:35 PM Test Reason : CP Blood Pressure : / mmHG Vent. Rate : 077 BPM Atrial Rate : 077 BPM P-R Int : 138 ms QRS Dur : 106 ms QT Int : 454 ms P-R-T Axes : 029 -40 134 degrees QTc Int : 513 ms Sinus rhythm. with premature atrial complexes. Possible Left atrial enlargement Left axis deviation Left ventricular hypertrophy with repolarization abnormality Cannot rule out Septal infarct , age undetermined Prolonged QT Abnormal ECG When compared with ECG of 18-MAR-2019 06:19, Minimal criteria for Septal infarct are now present Unconfirmed Result
[2019-07-14 20:23] LABS: URINE SOURCE CLEAN CATCH
[2019-07-14 20:27] LABS: BILIRUBIN URINE NEGATIVE (NEGATIVE); BLOOD URINE TRACE (NEGATIVE); COLOR STRAW; GLUCOSE URINE NEGATIVE (NEGATIVE); KETONE URINE NEGATIVE (NEGATIVE); LEUKOCYTES URINE NEGATIVE (NEGATIVE); NITRITE URINE NEGATIVE (NEGATIVE); PROTEIN URINE 300 mg/dL (NEGATIVE); SP GRAVITY URINE 1.013; TURBIDITY URINE CLEAR (CLEAR); UROBILINOGEN URINE NORMAL (NORMAL)
[2019-07-14 20:29] LABS: UR EPITHELIAL CELLS <10 /HPF (<10); URINE BACTERIA NEGATIVE /HPF; URINE RBC <10 /HPF (<10); URINE WBC <10 /HPF (<10)
--- NOTE | 2019-07-14 20:42 | Diag Imaging Result Doc PS360 ---
EXAM: CHEST-2 VIEWS HISTORY: CP TECHNIQUE: Chest two views COMPARISON: 03/18/2019 FINDINGS: The lungs are well expanded. The heart is enlarged. The vessels are mildly distended. There are no infiltrates. No pleural effusions. IMPRESSION: Cardiomegaly with central vascular distention. Electronically signed by Jean Marie Kaminski 07/14/2019 8:40 PM
[2019-07-14] MEDS ORDERED: LABETALOL IV ONE (21:55)
--- NOTE | 2019-07-14 22:22 | Diag Imaging Result Doc PS360 ---
EXAM: CT HEAD W/O CONTRAST HISTORY: hypertnsisve ememrgneyc TECHNIQUE: CT head without contrast. COMPARISON: None. FINDINGS: No parenchymal hemorrhage. No epidural or subdural hematoma. No subarachnoid hemorrhage. Small old left cerebellar infarct. No mass identified on this noncontrasted exam. No hydrocephalus. No sinus opacification. IMPRESSION: 1.No hemorrhage 2.Small old left cerebellar infarct. This exam was performed using automated exposure control, adjustment of mA or kV according to patient size, and/or use of iterative reconstruction technique. Electronically signed by Jean Marie Kaminski 07/14/2019 10:20 PM
[2019-07-15] MEDS ORDERED: ZOFRAN IV PRN (00:24)
[2019-07-15] MEDS: CARDENE 20 MG/NS 20 MG/200 ML PIGGYBACK IV SCH ×5 (00:40→18:02)
--- NOTE | 2019-07-15 01:48 | HISTORY AND PHYSICAL ---
PRIMARY CARE PROVIDER: None. NOVELTIES SALES REPRESENTATIVE: Dr. Marvin. SKIN DIVING TEACHER: Dr. Kauffman. HISTORY OF PRESENT ILLNESS: Mr. Cruz is a 54-year-old male who carries a past medical history of hypertension, coronary artery disease status post SC a with a stent over a year ago, sebaceous cyst removed from the left forehead, who came to the ED complaining of high blood pressure, headache, blurred vision and nausea earlier in the day. He denied any chest pain, shortness of breath, fever, chills, vomiting or diarrhea. Workup in the ED initially blood pressures were anywhere from 200 to 230s over 160 to 200s. He was initially given 2 doses of Apresoline, nitroglycerin paste and labetalol push. We will admit him to the ICU and placed him on a Cardene drip. Consult Dr. Marvin, his levers lace machine operator, restart his home medications, as well as Dr. Kauffman for his chronic kidney disease stage 5. PAST MEDICAL HISTORY: 1. Hypertension. 2. Chronic kidney disease stage 5, not on hemodialysis, followed by Dr. Kauffman. 3. Diastolic congestive heart failure. 4. Coronary artery disease status post stenting. 5. Tobacco dependence. PAST SURGICAL HISTORY: 1. Stent placement. 2. Subcutaneous cyst removed from the left side of the forehead. FAMILY HISTORY: Noncontributory. SOCIAL HISTORY: He lives with family and continued to smoke. Occasional beer. No illicit drugs. He does have a history of cocaine use in the past. ALLERGIES: No known drug allergies. HOME MEDICATIONS: 1. Aspirin 81 mg p.o. q.a.m. 2. Effient 10 mg p.o. daily. 3. Hydrochlorothiazide 25 mg p.o. daily. 4. Lipitor 40 mg p.o. daily. 5. Toprol-XL 100 mg p.o. daily. 6. PhosLo 667 mg p.o. t.i.d. However, this medication list does not reflect his last discharge medication list on 03/16/2019. REVIEW OF SYSTEMS: Twelve-point review of systems completely negative except for those mentioned in the HPI. PHYSICAL EXAMINATION: VITAL SIGNS: Initial temperature is 98.8 degrees, heart rate 77, respirations 24, blood pressure is now 190s/120s, O2 saturation is 98%. GENERAL: Mr. Cruz is a pleasant 54-year-old male who is lying in the bed in no acute distress. HEENT: Atraumatic, normocephalic. PERRL. NECK: Supple. Trachea midline. CARDIOVASCULAR: S1, S2 appreciated. No murmurs, gallops or rubs noted. RESPIRATORY: Lung sounds clear bilaterally. GI: Soft, nontender, nondistended. Positive bowel sounds in 4 quadrants. LOWER EXTREMITIES: No signs of clubbing or cyanosis. NEUROLOGIC: No focal deficits noted. DIAGNOSTIC DATA: Chest x-ray, cardiomegaly with central vascular distention. Head CT, no hemorrhage, small old left cerebellar infarct. EKG, sinus rhythm with PACs, left atrial enlargement. LABORATORY DATA: White count 5, hemoglobin and hematocrit 13 and 41, platelet count is 275,000. Sodium 141, potassium 4.1, BUN 50, creatinine 5.3, blood glucose is 92, troponin 0.010. Urinalysis is negative for bacteria, negative for nitrites. ASSESSMENT AND PLAN: 1. Hypertensive urgency. The patient will be admitted to the ICU, placed on a Cardene drip. Consult his levers lace machine operator Dr. Marvin in the a.m. We will continue home medications when correctly verified and reconciled. He did complain of headache and blurred vision as well as initially some nausea. He reports he has been compliant with all medications. 2. Chronic kidney disease stage 5, followed by Dr. Kauffman. We will consult Dr. Kauffman as well. 3. Diastolic congestive heart failure does not appear to be in exacerbation. We will continue with home medications when verified. 4. Coronary artery disease status post PCI a year ago. The patient adamantly denies any chest pain. 5. Further recommendations to follow physician evaluation, laboratory and diagnostic data. Dictated by CHARU Mills for Josr Ordonez MD I have performed a face to face diagnostic evaluation. Labs/xrays- reviewed. Exam- Chest- clear, CV- regular A/P- Hypertensive emergency- Admit, ICU, antihypertensive agent. Dr. Ordonez cc: MD Sandeep Camejo MD Reginald D. Gladish, MD MTDD
[2019-07-15] MEDS: TYLENOL PO PRN ×2 (01:57→10:17)
[2019-07-15 06:09] LABS: BASO# 0.02 X1000 (0.0-0.2); BASO% 0.3 % (0.0-0.8); EOS% 4.5 % (0.0-10.0); HEMATOCRIT 39.7 % (42.0-52.0); HEMOGLOBIN 12.9 g/dL (14.0-18.0); IMM GRAN# 0.02 X1000 (0.0-0.04); IMM GRAN% 0.3 % (0.0-0.5); MCH 30.3 PG (27-31); MCHC 32.5 g/dL (33-37); MCV 93.2 FL (81-99); MONO# 0.84 X1000 (0.11-0.59); MONO% 12.6 % (1.7-9.3); NEUT# 4.67 X1000 (1.4-6.5); NEUT% 70.3 % (42.2-75.2); PLT 246 X1000 (130-400); RBC 4.26 XMIL (4.7-6.1); RDW 15.8 % (11.5-14.5); WBC 6.65 X1000 (4.8-10.8)
[2019-07-15 06:16] LABS: ALB/GLOB RATIO 1.3; CALCIUM 8.2 mg/dL (8.8-10.2); MAGNESIUM 2.2 mg/dL (1.5-2.7); TOTAL BILIRUBIN 0.23 mg/dL (0.20-1.00); TOTAL PROTEIN 7.2 g/dL (6.3-8.3)
[2019-07-15 06:18] LABS: CREATININE 5.3 mg/dL (0.7-1.2)
[2019-07-15] MEDS: PHOSLO PO SCH ×3 (07:15→16:22)
--- NOTE | 2019-07-15 07:33 | EKG Report ---
Test Performed on : 07/15/2019 06:31:27 AM Test Reason : chest pain Blood Pressure : / mmHG Vent. Rate : 083 BPM Atrial Rate : 083 BPM P-R Int : 138 ms QRS Dur : 104 ms QT Int : 450 ms P-R-T Axes : 046 -40 119 degrees QTc Int : 528 ms Normal sinus rhythm. with sinus arrhythmia. Possible Left atrial enlargement Left axis deviation Left ventricular hypertrophy with repolarization abnormality Prolonged QT Abnormal ECG When compared with ECG of 14-JUL-2019 18:24, (Unconfirmed) premature atrial complexes. are no longer present Confirmed by Suraj JEWELL, Colin Salcido ([id number]) on 07/16/2019 8:58:23 AM
--- NOTE | 2019-07-15 07:48 | Diag Imaging Result Doc PS360 ---
EXAM: CHEST-PORTABLE INDICATION: follow up TECHNIQUE: One view COMPARISON: 07/14/2019 FINDINGS: Mild pulmonary venous congestion is approximately stable. No new consolidation is identified. There is stable cardiomegaly. IMPRESSION: Stable chest. Electronically signed by Alonso Vanegas 07/15/2019 7:46 AM
[2019-07-15] MEDS: LIPITOR PO SCH (08:08)
[2019-07-15] MEDS: ASPIRIN PO SCH (08:08)
[2019-07-15] MEDS ORDERED: TOPROL XL PO SCH (09:00)
[2019-07-15] MEDS ORDERED: EFFIENT PO SCH (09:00)
[2019-07-15] MEDS ORDERED: COREG PO SCH (09:00)
[2019-07-15] MEDS ORDERED: HYDROCHLOROTHIAZIDE PO SCH (09:00)
[2019-07-15] MEDS ORDERED: TRANDATE PO SCH (12:15)
[2019-07-15] MEDS ORDERED: ALDACTONE PO SCH (12:15)
[2019-07-15] MEDS ORDERED: NORVASC PO SCH (12:15)
[2019-07-15] MEDS ORDERED: COZAAR PO SCH (12:15)
--- NOTE | 2019-07-15 12:45 | PROGRESS NOTE ---
DATE: 07/15/2019 SUBJECTIVE: This morning, Mr. Cruz refers to be doing a lot better. No more head headaches. OBJECTIVELY: Current vitals: Blood pressure is 178/110, pulse of 85, respirations 18, temperature is 97.6 degrees.General: Mr. Cruz a 54-year-old gentleman. He is in bed. No distress. HEENT: Mucosa is pink and moist. Anicteric. Acyanotic. Neck: Supple. Chest: Good air entry bilateral there was no crepitations, no rhonchi. Cardiovascular: Regular rate and rhythm. No murmurs. Abdomen: Soft, nontender. Bowel sounds present. Extremities: No pedal edema. [employer]: Patient is awake, alert, and oriented. Neurologic: There is no focal neurological deficit. LABORATORY DATA: CBC shows mild normocytic anemia. Chemistry is also reviewed. BUN is 49, creatinine is 5.3. Rest of chemistry is completely within normal range. MEDICATIONS IN THE HOSPITAL: The patient is currently on the nicardipine drip. ASSESSMENT: 1. Hypertensive urgency on presentation associated with headaches. This is improving. Severe uncontrolled hypertension at home. 2. Chronic kidney disease stage 5. The patient normally follows up with Dr. Kauffman. We will presume that this is likely due to hypertensive nephrosclerosis. 3. 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 We will continue to address the underlying hypertension. 4. Diastolic dysfunction stage I per recent echo. 5. Coronary artery disease status post stent. 6. Dyslipidemia. The patient has been started on Lipitor. PLAN: So in general, Mr. Cruz is currently asymptomatic. We are weaning him off the nicardipine drip. We started him back on amlodipine, losartan, Aldactone, and hydrochlorothiazide. We will try and get a better oral regimen for him as we gradually titrate him off the nicardipine drip. Once the drip is off, I think we can transfer him to the regular floor or discharge him home. cc: Cesar Lott MD
[2019-07-15] MEDS: APRESOLINE PO SCH ×2 (13:16→16:22)
--- NOTE | 2019-07-15 13:17 | NEPHROLOGY CONSULTATION ---
DATE: 07/15/2019 54-year-old black man with hypertension, the stage five. Hes followed in our office and was recently seen. Renal function is at his historical baseline. He came to the emergency room with headache, uncontrolled hypertension. Also blurred vision. No chills, fever, shortness of breath, etc. 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 Family history/review systems noncontributory Physical exam: blood pressure 164/112 heart rate 75 respiration 26 afebrile Generally no acute distress. Conjunctiva are pink and moist. Pupils are equal and round. Oropharynx is clear. Normal tongue. Poor dentition. Neck is supple and Trachea is midline. No jugular venous distention. PMI displaced Laterally. Regular rate and rhythm with S4. Lungs have equal breath sounds without crackles or wheezes. Abdomen soft and nontender with normal bowel sounds. Extremities have no edema, clubbing, cyanosis. Impression/plan Hypertensive emergency. Continue IV nicardipine. I will add carvedilol. Continue to titrate his medication as appropriate. Chronic kidney disease stage five. No uremic symptoms. No acute indications for renal replacement therapy. Acid base/electrolytes. In target. cc: Ryan Kauffman MD MTDD
--- NOTE | 2019-07-15 13:38 | CONSULTATION ---
DATE OF CONSULTATION: 07/15/2019 IMPRESSION: 1. Hypertensive urgency. 2. Severe hypertension with severe left ventricular hypertrophy. 3. Chronic kidney disease stage V. 4. Atherosclerotic coronary artery disease with previous coronary angioplasty/stenting of the right coronary artery more than a year ago. 5. Chronic cigarette use. RECOMMENDATIONS: 1. Agree with the use of intravenous nicardipine. 2. Resume usual antihypertensive regimen and adjust as required to achieve better blood pressure control. HISTORY: This 54-year-old -[place] male with past history of severe hypertensive cardiovascular disease, chronic kidney disease stage V, atherosclerotic coronary artery disease, hyperlipidemia, and cigarette use, was admitted through the emergency room with severe hypertension after he presented with several day history of headaches and some exertional shortness of breath. He was found to have systolic blood pressure over 200 and diastolic pressure over 150. He reports compliance with his medications of late and that he has also been compliant with salt restriction. There has been no angina. There has been no orthopnea. He relates some shortness of breath walking short distances for the last 2 or 3 days. There has been no orthopnea. PAST MEDICAL HISTORY: 1. Severe hypertensive cardiovascular disease with severe left ventricular hypertrophy and normal left ventricular ejection fraction. 2. Chronic kidney disease stage V, probably due to long-standing hypertension, poorly controlled. 3. Atherosclerotic coronary artery disease. Patient is status post previous coronary angioplasty/stenting of the right coronary artery more than a year ago. 4. Hyperlipidemia. 5. History of inconsistent medical compliance in the past. PAST SURGICAL HISTORY: Includes previous unspecified eye surgery. ALLERGIES: He has no known drug allergies. MEDICATIONS PRIOR TO ADMISSION: As listed. SOCIAL HISTORY: He is single. He is unemployed. He is on disability. He continues to smoke cigarettes. He does not use alcohol and denies recreational drug use. FAMILY HISTORY: Negative for premature coronary disease in other family members. REVIEW OF SYSTEMS: Pulmonary: Noncontributory beyond history of present illness. Gastrointestinal: Noncontributory beyond history of present illness. Constitutional: Noncontributory beyond history of present illness. Remainder of review of systems negative/noncontributory beyond history of present illness with 14 total systems reviewed. PHYSICAL EXAMINATION: General: Reveals a pleasant adult male in no distress. Vital signs: Blood pressure 181/121, heart rate 79, oxygen saturation 96% on room air. HEENT: Extraocular movements appear intact. Mucous membranes moist. Neck: Supple without jugular venous distention. There are no carotid bruits. Chest: Clear to auscultation. Cardiac: Reveals a regular rate and rhythm with normal 1st and 2nd heart sound. S4 gallop is present. There is no murmur appreciated. Abdomen: Soft. Bowel sounds normal. Extremities: Without edema. Neurologic: Reveals him to be alert and fully oriented. Speech is fluent. He moves all 4 extremities equally well. Skin: Warm and dry. Psychiatric: Reveals the mood to be appropriate. DIAGNOSTIC DATA: 12 lead EKG demonstrates normal sinus rhythm with sinus arrhythmia and left ventricular hypertrophy with repolarization abnormality. Left axis deviation demonstrated. Left atrial enlargement suggested. LABORATORY DATA: Includes a white blood cell count 6.65, hematocrit 39.7, hemoglobin 12.9, platelet count 246,000. Sodium 136, potassium 4.0, chloride 103, carbon dioxide 20, BUN 49, creatinine 5.3, glucose 128. Troponin T 0.019. cc: Sandeep Marvin MD
--- NOTE | 2019-07-15 14:30 | EKG Report ---
Test Performed on : 07/15/2019 11:43:54 AM Test Reason : ICU. NO EKG ORDER FOR MUSE Blood Pressure : / mmHG Vent. Rate : 081 BPM Atrial Rate : 081 BPM P-R Int : 138 ms QRS Dur : 108 ms QT Int : 456 ms P-R-T Axes : 025 -37 122 degrees QTc Int : 529 ms Sinus rhythm. with premature atrial complexes. with aberrant conduction. Possible Left atrial enlargement Left axis deviation Left ventricular hypertrophy with repolarization abnormality Prolonged QT Abnormal ECG When compared with ECG of 15-JUL-2019 06:31, (Unconfirmed) aberrant conduction. is now present Confirmed by uSraj JEWELL, Colin Salcido ([id number]) on 07/16/2019 8:59:44 AM
[2019-07-15] MEDS: TRANDATE PO SCH (20:39)
[2019-07-16] MEDS: CARDENE 20 MG/NS 20 MG/200 ML PIGGYBACK IV SCH (06:33)
[2019-07-16 07:45] LABS: ALBUMIN 3.8 g/dL (3.5-5.0); CALCIUM 8.4 mg/dL (8.8-10.2); POTASSIUM 4.3 mmol/L (3.5-5.1)
[2019-07-16 07:47] LABS: CREATININE 5.8 mg/dL (0.7-1.2)
[2019-07-16] MEDS: ASPIRIN PO SCH (08:36)
[2019-07-16] MEDS: APRESOLINE PO SCH ×3 (08:36→16:22)
[2019-07-16] MEDS: TRANDATE PO SCH ×3 (08:37→16:22)
[2019-07-16] MEDS: PHOSLO PO SCH ×3 (08:37→16:22)
[2019-07-16] MEDS: LASIX PO SCH (08:37)
[2019-07-16] MEDS: LIPITOR PO SCH (08:37)
[2019-07-16] MEDS ORDERED: HYDROCHLOROTHIAZIDE PO SCH (09:00)
[2019-07-16] MEDS: ADALAT CC PO SCH (10:03)
--- NOTE | 2019-07-16 12:57 | PROGRESS NOTE ---
DATE: 07/16/2019 SUBJECTIVE: Mr. Cruz states that he is doing much better. He is tolerating p.o. and he is having good urine output. The nicardipine drip has been restarted during the night. It looks like the blood pressure went up. We will try to titrate this treatment down again. OBJECTIVE: Vital Signs: Temperature 98.6 degrees, pulse 74, respiratory rate 25, blood pressure 135/90. That was at 6:40 a.m. Right now, the systolic blood pressure is in the 170s. Oxygen saturation 98 on room air. HEENT: Head normocephalic. No trauma. PERRLA. Neck: Supple. No JVD. No masses. Central trachea. Chest: Clear to auscultation. No wheezing. No rales. Abdomen: Soft, nontender, nondistended. No hepatosplenomegaly. Cardiovascular: RRR. Extremities: No edema, no clubbing, no cyanosis. Neurological Examination: The patient is awake. He is oriented x3. No focal deficits. Laboratory: Sodium 137, potassium 4.3, chloride 102, bicarbonate 20, BUN 49, creatinine 5.8, glucose 78, calcium 8.4, phosphorus 4, albumin 3.8. ASSESSMENT AND PLAN: 1. Hypertensive urgency on presentation associated with headache, improved. He is still on the nicardipine drip because his blood pressure, as per the nurse, increased above 180 during the night. Apparently, he was doing some kind of physical activity. I believe he was taking a bath. Cardiology department and nephrology department on board. 2. Chronic kidney disease stage 5. This patient normally follows with Dr. Kauffman as an outpatient. 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 I am assuming the kidney dysfunction is due to uncontrolled hypertension. 3. 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 Continue to address the underlying hypertension. Cardiology department has been adjusting his medication. His blood pressure is still elevated. He will receive his medication this morning. 4. Diastolic dysfunction stage I per recent echocardiogram. Aware. 5. History of coronary artery disease, status post stent. Aware. 6. Dyslipidemia. Continue with Lipitor. 7. This patient is feeling better. He is still on a nicardipine drip. His initial blood pressure was around 231/145 with headache. Today, he seems to be better. I will wait for recommendations of cardiology and nephrology department. CRITICAL CARE TIME: 30 minutes. cc: Bob Esparza MD
--- NOTE | 2019-07-16 17:24 | PROGRESS NOTE ---
DATE: 07/16/2019 SUBJECTIVE: The patient continues without chest discomfort or shortness of breath on room air. Nicardipine is being tapered off. OBJECTIVE: Blood pressure 161/109, heart rate 64, oxygen saturation 100% on room air. There is no significant jugular venous distention.Chest: Clear to auscultation. Cardiac: Exam reveals a regular rate and rhythm without appreciable murmur. S4 gallop is present. Extremities: Without edema. LABORATORY DATA: Includes sodium 137, potassium 4.3, chloride 102, carbon dioxide 20, BUN 49 and creatinine 5.8. IMPRESSION: 1. Hypertensive urgency. 2. Severe hypertension with severe left hypertrophy. 3. Chronic kidney disease stage 5. 4. Atherosclerotic coronary disease with previous coronary angioplasty/stenting of the right coronary artery more than a year ago. 5. Chronic cigarette use. RECOMMENDATIONS: 1. Increase labetalol to 200 mg p.o. t.i.d. 2. Increase hydralazine gently as needed. 3. Smoking cessation strongly advised. cc: Sandeep Marvin MD
--- NOTE | 2019-07-16 22:21 | NEPHROLOGY PROGRESS NOTE ---
DATE: 07/16/2019 SUBJECTIVE: He states he is "doing good." No shortness of breath, chest discomfort, nausea, vomiting, etc. OBJECTIVE: Blood pressure 135/90, heart rate 74, respirations 25. Exam was performed at approximately 6:30. No acute distress.Skin: Warm and dry. Neck veins are not distended. Heart: Regular with S4. Lungs: Equal. No crackles. Abdomen: Soft, nontender. Bowel sounds present. Extremities: No edema, clubbing, or cyanosis. IMPRESSION AND PLAN: 1. Hypertensive emergency. Blood pressure was reasonably well controlled at the time of my exam, but has been uncontrolled through the day. Dr. Marvin has added nifedipine 90 mg and labetalol 200 mg t.i.d. He is still requiring the nicardipine. He is also on hydralazine 100 t.i.d. Continue same. 2. Chronic kidney disease 5D. Modest metabolic acidosis, but otherwise stable. No indications for dialysis at this time. cc: Ryan Kauffman MD
[2019-07-17 06:37] LABS: CALCIUM 8.2 mg/dL (8.8-10.2); CREATININE 5.9 mg/dL (0.7-1.2); PHOSPHORUS 4.3 mg/dL (2.7-4.5); POTASSIUM 3.9 mmol/L (3.5-5.1)
--- NOTE | 2019-07-17 07:33 | PROGRESS NOTE ---
DATE: 07/17/2019 SUBJECTIVE: This patient states that he is doing better. He is not complaining of any issues at this moment. The nicardipine drip has been stopped and his blood pressure has been more controlled. Cardiology Department and Nephrology Department following this patient. I will wait for their evaluations to see if they are okay to send this patient home. OBJECTIVE: Vital Signs: Temperature 98.9 degrees, pulse 76, respiratory rate 12, blood pressure 154/98, oxygen saturation 97% on room air. HEENT: Head normocephalic, no trauma. PERRLA. Neck: Supple. No JVD. No masses. Central trachea. Chest: Clear to auscultation. No wheezing. No rales. Abdomen: Soft, nontender, nondistended. No hepatosplenomegaly. Cardiovascular: Regular rate and rhythm. Extremities: No edema, no clubbing, no cyanosis. Neurological: The patient is awake, alert, and oriented x3. No deficits. LABORATORY DATA: Sodium 137, potassium 3.9, chloride 100, bicarbonate 20, BUN 51, creatinine 5.9, glucose 86, calcium 8.2, phosphorus 4.3. ASSESSMENT AND PLAN: 1. Hypertensive urgency on presentation associated with headache, improved. He was on nicardipine drip yesterday, which has been stopped. Now blood pressure seems to be more stable, creatinine around baseline. I will ask Dr. Kauffman to see if he is okay to send this patient home today. 2. Chronic kidney disease stage V, as above. We will ask Dr. Kauffman to see if he is okay to send this patient home. 3. Severe concentric hypertrophic cardiomyopathy, secondary to hypertensive heart disease. Blood pressure seems to be much better. Cardiology Department on board and they have been adjusting his medications. 4. Diastolic dysfunction stage I per recent echocardiogram. Aware. 5. History of coronary artery disease status post stent. Aware. 6. Dyslipidemia. Continue with Lipitor. cc: Bob Esparza MD
[2019-07-17] MEDS: ADALAT CC PO SCH (08:37)
[2019-07-17] MEDS: PHOSLO PO SCH (08:38)
[2019-07-17] MEDS: APRESOLINE PO SCH (08:38)
[2019-07-17] MEDS: TRANDATE PO SCH (08:38)
[2019-07-17] MEDS: LASIX PO SCH (08:38)
[2019-07-17] MEDS: ASPIRIN PO SCH (08:38)
[2019-07-17] MEDS: LIPITOR PO SCH (08:38)
[2019-07-17 08:48] VITALS: BP 159/96
--- NOTE | 2019-07-17 12:07 | NEPHROLOGY PROGRESS NOTE ---
DATE: 07/17/2019 SUBJECTIVE: He is feeling well. No shortness of breath, nausea, vomiting, etc. OBJECTIVE: Vital Signs: Blood pressure 159/96, heart rate 75, respirations 23, afebrile. General: No acute distress. Skin: Warm and dry. Neck: Neck veins are not distended. Heart: Regular with S4. Lung: Equal. No crackles. Abdomen: Soft and nontender. Bowel sounds are present. Extremities: No edema. IMPRESSION: 1. Hypertensive urgency. Blood pressure has improved. Okay for discharge on current medication list and we will see him in the office in order to manage his blood pressure. 2. His stage 5 chronic kidney disease is stable and he does not require dialysis urgently. cc: Ryan Kauffman MD
--- NOTE | 2019-07-18 07:16 | DISCHARGE SUMMARY ---
ADMISSION DATE: 07/14/2019 DISCHARGE DATE: 07/17/2019 DISCHARGE DIAGNOSES: 1. Hypertensive urgency. 2. Chronic kidney disease stage 5. 3. 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 4. Hypertensive heart disease. 5. Diastolic dysfunction, stage I per recent echocardiogram. 6. History of coronary artery disease status post stent. 7. Dyslipidemia. PROCEDURES PERFORMED: 1. Chest x-ray dated 07/14/2019. Impression: Cardiomegaly with central vascular distention. 2. Head CT scan dated 07/14/2019. Impression: No hemorrhage, small old left cerebellar infarct. 3. Chest x-ray dated 07/15/2019. Impression: Stable chest. CONSULTATIONS: 1. Cardiology Department Dr. Sandeep Marvin. 2. Nephrology Department Dr. Kauffman. HOSPITAL COURSE: A 54-year-old male with a past medical history of hypertension, CKD stage 5 not on hemodialysis, and followed by Dr. Kauffman as an outpatient, diastolic CHF, coronary artery disease status post stenting, and tobacco dependence admitted on 07/14/2019 presented to the emergency department complaining with high blood pressure, headache, blurry vision, and nausea early in the day. He denied any chest pain, shortness of breath, fever, chills, vomiting, or diarrhea. Workup in the emergency department showed an initial blood pressure that were anywhere from 200 to 230s systolic. He was given 2 doses of hydralazine, nitroglycerin paste, and labetalol push. He was admitted to the ICU and placed on a nicardipine drip. Cardiology Department and Nephrology Department were consulted. The medication for the blood pressures were adjusted. We were able to stop the drip, and continue only with by mouth medications. The patient was feeling better on a daily basis. He was tolerating p.o. and ambulating by himself. No problems urinating or having bowel movements. He is asymptomatic today. His vital signs are more stable. He will be discharged, and followup strict by Nephrology Department. PHYSICAL EXAMINATION: Vital Signs: Temperature 98.6 degrees, pulse 75, respiratory rate 23, blood pressure 159/96, and oxygen saturation 97% on room air. HEENT: Head normocephalic. No trauma. PERRLA. Neck: Supple. No JVD. No masses. Central trachea. Chest: Clear to auscultation. No wheezing. No rales. Abdomen: Soft, nontender, and nondistended. No hepatosplenomegaly. Cardiovascular: RRR. Extremities: No edema. No clubbing. No cyanosis. Neurological: The patient is awake, alert, and oriented x3. No deficits. LABORATORY: Sodium 137, potassium 3.9, chloride 100, bicarbonate 20, BUN 51, creatinine 5.9, glucose 86, calcium 8.2, phosphorus 4.3, and albumin 4. DISCHARGE MEDICATIONS: 1. Aspirin 81 mg p.o. every morning. 2. Lipitor 40 mg p.o. daily. 3. PhosLo 667 mg p.o. t.i.d. 4. Lasix 80 mg p.o. daily. 5. Hydralazine 100 mg p.o. t.i.d. 6. Labetalol 200 mg p.o. t.i.d. 7. Nifedipine ER 90 mg p.o. daily. TIME SPENT: Time discharging this patient 35 minutes. cc: Bob Esparza MD
== END 2019-07-17 10:00 | disposition home or self-care (01) | DRG 305 ==
LOC: ED 18:09 → SUATTDRO 23:44 → ICU 23:44
PROVIDERS: ATTEND Internal Medicine